=== PATIENT | male | born 1965 | race Asian ===

== ENCOUNTER 2018-10-29 22:30 | Inpatient (IN) | payer SELFPAY ==
[~2018-10-29] VITALS: Ht 154.9 cm; Wt 67.3 kg
--- NOTE | 2018-10-29 22:52 | NUR ---
ED Nurse Note: Received report. Pt AAOx4, ambulatory, from home, c/o abdominal pain 10/10 RLQ x 2days withn/v 6 times within the last few hrs. Will assess and carry out ER MD's orders.
[2018-10-29] MEDS ORDERED: Morphine Sulfate 4mg/ml Inj (IV USE ONLY) IVP ONE (23:00)
[2018-10-29] MEDS ORDERED: Ketorolac 30mg Inj IV ONE (23:00)
[2018-10-29 23:06] VITALS: BP 156/95
--- NOTE | 2018-10-29 23:14 | Emergency Room Report ---
History of Present Illness General Chief Complaint: Abdominal Pain Source: Patient Present Illness HPI Is a 53-year-old male with no past medical history. He presents with chief complaint abdominal pain. Onset for 1 day since this morning. Pain is to the right side. Has nausea vomiting. No diarrhea. No fever chills. Pain is sharp and crampy. 9 out of 10. Vomiting is nonbloody nonbilious. Allergies: Coded Allergies: No Known Allergies (Unverified , 10/29/18) Patient History Past Medical History: see triage record, old chart reviewed Past Surgical History: none Pertinent Family History: none Social History: Denies: smoking Immunizations: other Reviewed Nursing Documentation: PMH: Agreed; PSxH: Agreed Nursing Documentation-PMH Past Medical History: No Stated History Review of Systems Eye: Denies: eye pain, blurred vision ENT: Denies: ear pain, nose congestion, throat swelling Respiratory: Denies: cough, shortness of breath Cardiovascular: Denies: chest pain, palpitations Gastrointestinal: Reports: abdominal pain, nausea, vomiting; Denies: diarrhea Musculoskeletal: Denies: back pain, joint pain Skin: Denies: rash Neurological: Denies: headache, numbness Endocrine: Denies: increased thirst, increased urine Hematologic/Lymphatic: Denies: easy bruising All Other Systems: negative except mentioned in HPI Physical Exam Vital Signs Date Time Temp Pulse Resp B/P (MAP) Pulse Ox O2 Delivery O2 Flow Rate FiO2 10/29/18 22:36 97.7 85 22 162/105 (124) 99 Room Air vitals with high blood pressure Sp02 EP Interpretation: reviewed, normal General Appearance: well appearing, no apparent distress, alert Head: normocephalic, atraumatic Eyes: bilateral eye PERRL, bilateral eye EOMI ENT: hearing grossly normal, normal pharynx Neck: full range of motion, supple, no meningismus Respiratory: chest non-tender, lungs clear, normal breath sounds Cardiovascular #1: regular rate, rhythm, no murmur Gastrointestinal: normal bowel sounds, no mass, no organomegaly, no bruit, non- distended, tenderness - Rt lower quadrant tenderness Musculoskeletal: back normal, gait/station normal, normal range of motion Neurologic: alert, oriented x3 Psychiatric: mood/affect normal Skin: warm/dry Medical Decision Making Diagnostic Impression: Primary Impression: Appendicitis, acute Qualified Codes: K35.30 - Acute appendicitis with localized peritonitis, without perforation or gangrene ER Course This patient presents with right lower quadrant pain. He has leukocytosis and CT scan showed acute appendicitis. I discussed the case with Dr. Schafer for surgical consultation. Pt will be admitted to Dr. Low. Lab Results Impression Labs with leukocytosis Rhythm Strip Diag. Results EP Interpretation: yes Rate: 89 Rhythm: NSR, no PVC's CT/MRI/US Diagnostic Results CT/MRI/US Diagnostic Results : Imaging Test Ordered: CT abdomen and pelvis Impression Read by radiologist. Acute appendicitis. No abscess or perforation. Last Vital Signs Date Time Temp Pulse Resp B/P (MAP) Pulse Ox O2 Delivery O2 Flow Rate FiO2 10/29/18 22:36 97.7 85 22 162/105 (124) 99 Room Air Status: improved Disposition: ADMITTED INPATIENT Condition: Serious Luis Diaz MD Oct 29, 2018 23:14
[2018-10-29 23:26] LABS: HEMATOCRIT 41.7 % (42.0-52.0); HEMOGLOBIN 14.8 G/DL (14.2-18.0); MEAN CORPUSCULAR VOLUME 84 FL (80-99); PLATELET COUNT 226 K/UL (150-450); RED BLOOD COUNT 4.95 M/UL (4.70-6.10); RED CELL DISTRIBUTION WIDTH 10.7 % (11.6-14.8); WHITE BLOOD COUNT 18.3 K/UL (4.8-10.8)
[2018-10-29 23:28] LABS: ANION GAP 14 mmol/L (5-15); BLOOD UREA NITROGEN 20 mg/dL (7-18); CALCIUM 9.7 MG/DL (8.5-10.1); CARBON DIOXIDE 23 MMOL/L (21-32); CHLORIDE 99 MMOL/L (98-107); CREATININE 1.1 MG/DL (0.55-1.30); POTASSIUM 3.7 MMOL/L (3.5-5.1); SODIUM 135 MMOL/L (136-145)
[2018-10-29] MEDS ORDERED: Piperacillin/Tazobactam 3.375 GM in NS 110 ML IVPB ONE (23:30)
[2018-10-29 23:39] LABS: ALANINE AMINOTRANSFERASE 46 U/L (12-78); ALBUMIN 4.1 G/DL (3.4-5.0); ALBUMIN/GLOBULIN RATIO 0.9 (1.0-2.7); ALKALINE PHOSPHATASE 117 U/L (46-116); ASPARTATE AMINO TRANSFERASE 34 U/L (15-37); BILIRUBIN,TOTAL 1.2 MG/DL (0.2-1.0)
[2018-10-29 23:41] LABS: BILIRUBIN,DIRECT 0.2 MG/DL (0.0-0.3)
[2018-10-30] VITALS (13 sets, daily range): BP systolic 111–160; BP diastolic 70–90
--- NOTE | 2018-10-30 00:23 | Pre-Procedure Note/Attestation ---
Pre-Procedure Note/Attestation Complete Prior to Procedure Planned Procedure: not applicable Procedure Narrative: laparoscopic appendectomy possible open appendectomy Indications for Procedure Pre-Operative Diagnosis: acute appendicitis Attestation I attest that I discussed the nature of the procedure; its benefits; risks and complications; and alternatives (and the risks and benefits of such alternatives ), prior to the procedure, with the patient (or the patient's legal cash application representative). I attest that, if there was a reasonable possibility of needing a blood transfusion, the patient (or the patient's legal cash application representative) was given the [facility] standardized written summary, pursuant to the [place] Blood Safety Act ([place] Health and Safety Code # 1645, as amended). I attest that I re-evaluated the patient just prior to the surgery and that there has been no change in the patient's H&P, except as documented below: Iván Schafer MD Oct 30, 2018 00:23
--- NOTE | 2018-10-30 00:32 | NUR ---
ED Nurse Note: Pt ready for surgery and consent signed and in chart. Awaiting pickup for surgery.
[2018-10-30] MEDS ORDERED: fentaNYL 100 mcg/2 mL IV ONE (00:46)
[2018-10-30] MEDS ORDERED: Midazolam 2mg/2ml Inj ONE (00:47)
[2018-10-30] MEDS ORDERED: Propofol 200mg/20ml IV ONE (00:52)
[2018-10-30] MEDS ORDERED: Ketorolac 30mg Inj ONE (00:52)
[2018-10-30] MEDS ORDERED: Lidocaine 1% MPF 10mg/ml 5ml ONE (00:52)
[2018-10-30] MEDS ORDERED: Bupivacaine 0.25% Inj 30ml INJ ONE (00:57)
[2018-10-30] MEDS ORDERED: NeoSporin Gu Irrig 1ml Amp IRRIG ONE (00:57)
[2018-10-30] MEDS ORDERED: Bacitracin 50000 Units Vial ONE (00:57)
[2018-10-30] MEDS ORDERED: Zemuron 50mg/5ml Inj IV ONE (00:59)
[2018-10-30] MEDS ORDERED: Succinylcholine 20mg/ml 10ml vial ONE (00:59)
[2018-10-30] MEDS ORDERED: LR 1000ml 1,000 ML IVLG SCH (01:10)
--- NOTE | 2018-10-30 01:10 | Anethesia Preoperative Eval ---
Anesthesia Pre-op PMH/ROS General Date of Evaluation: Oct 30, 2018 Time of Evaluation: 01:06 Anesthesiologist: sena ASA Score: ASA 2 Mallampati Score Class I : Soft palate, uvula, fauces, pillars visible Class II: Soft palate, uvula, fauces visible Class III: Soft palate, base of uvula visible Class IV: Only hard plate visible Mallampati Classification: Class II Surgeon: Gilmar Diagnosis: Acute appendicitis Surgical Procedure: Appendectomy Anesthesia History: none Family History: no anesthesia problems Allergies: Coded Allergies: No Known Allergies (Unverified , 10/29/18) Medications: see eMAR Patient NPO?: Yes Past Medical History Cardiovascular: Reports: HTN - untreated; Denies: CAD, [place], valve dz, arrhythmia, other Pulmonary: Denies: asthma, COPD, ORI, other Gastrointestinal/Genitourinary: Reports: GERD, other; Denies: CRI, ESRD Neurologic/Psychiatric: Denies: dementia, CVA, depression/anxiety, TIA, other Endocrine: Denies: DM, hypothyroidism, steroids, other HEENT: Denies: cataract (L), cataract (R), glaucoma, SHOSHONE-PAI[place] (L), SHOSHONE-PAIUTE (R), other Hematology/Immune: Denies: anemia, DVT, bleeding disorder, other Musculoskeletal/Integumentary: Denies: OA, RA, DJD, DDD, edema, other PMH Narrative: as above admitted for acute abdominal pain PSxH Narrative: none Anesthesia Pre-op Phys. Exam Physician Exam Last Vital Signs Date Time Temp Pulse Resp B/P (MAP) Pulse Ox O2 Delivery O2 Flow Rate FiO2 10/29/18 23:06 97.7 86 22 156/95 99 Room Air Constitutional: NAD Neurologic: CN 2-12 intact Cardiovascular: RRR, no M/R/G Respiratory: CTA Gastrointestinal: other - tender on palpation Airway Exam Mallampati Score: Class II MO: full Neck: flexible ROM: full Teeth: missing Dentures: no upper, no lower Anesthesia Pre-op A/P Labs Hematology Test 10/29/18 22:52 White Blood Count 18.3 K/UL (4.8-10.8) H Red Blood Count 4.95 M/UL (4.70-6.10) Hemoglobin 14.8 G/DL (14.2-18.0) Hematocrit 41.7 % (42.0-52.0) L Mean Corpuscular Volume 84 FL (80-99) Mean Corpuscular Hemoglobin 29.9 PG (27.0-31.0) Mean Corpuscular Hemoglobin Concent 35.6 G/DL (32.0-36.0) Red Cell Distribution Width 10.7 % (11.6-14.8) L Platelet Count 226 K/UL (150-450) Mean Platelet Volume 7.6 FL (6.5-10.1) Neutrophils (%) (Auto) % (45.0-75.0) Lymphocytes (%) (Auto) % (20.0-45.0) Monocytes (%) (Auto) % (1.0-10.0) Eosinophils (%) (Auto) % (0.0-3.0) Basophils (%) (Auto) % (0.0-2.0) Chemistry Test 10/29/18 22:52 Sodium Level 135 MMOL/L (136-145) L Potassium Level 3.7 MMOL/L (3.5-5.1) Chloride Level 99 MMOL/L (98-107) Carbon Dioxide Level 23 MMOL/L (21-32) Anion Gap 14 mmol/L (5-15) Blood Urea Nitrogen 20 mg/dL (7-18) H Creatinine 1.1 MG/DL (0.55-1.30) Estimat Glomerular Filtration Rate > 60 mL/min (>60) Glucose Level 138 MG/DL (74-106) H Calcium Level 9.7 MG/DL (8.5-10.1) Total Bilirubin 1.2 MG/DL (0.2-1.0) H Direct Bilirubin 0.2 MG/DL (0.0-0.3) Aspartate Amino Transf (AST/SGOT) 34 U/L (15-37) Alanine Aminotransferase (ALT/SGPT) 46 U/L (12-78) Alkaline Phosphatase 117 U/L (46-116) H Total Protein 8.6 G/DL (6.4-8.2) H Albumin 4.1 G/DL (3.4-5.0) Globulin 4.5 g/dL Albumin/Globulin Ratio 0.9 (1.0-2.7) L Lipase 156 U/L (73-393) Risk Assessment & Plan Assessment: ASA 2E Plan: GA with ETT Status Change Before Surgery: No Pre-Antibiotics Drug: as scheduled Georgi Couch MD Oct 30, 2018 01:10
[2018-10-30] MEDS ORDERED: DiphenhydrAMINE 50mg/ml Inj IVP PRN (01:15)
--- NOTE | 2018-10-30 01:15 | NUR ---
TRANSFER TO FLOOR: Patient transferred to OR as ordered, per Dr. Couch. Report given to OR nurse. Belongings and medications given to at bedside. with pt at time of transfer.
--- NOTE | 2018-10-30 01:15 | Consultation ---
DATE OF CONSULTATION: 10/30/2018 PREOPERATIVE CONSULTATION CONSULTING PHYSICIAN: Iván Schafer M.D. REQUESTING PHYSICIAN: Luis Diaz M.D., Emergency Room. REASON FOR CONSULTATION: Abdominal pain. HISTORY OF PRESENT ILLNESS: This is a 53-year-old Iranian male, who presented to emergency room complaining of abdominal pain since the afternoon of 10/29/2018. He stated that the pain is located at right lower quadrant without radiation. This pain has been associated with nausea and vomiting. He denied any fever, cough, dysuria, or frequency. He denied any previous history of similar pain. PAST MEDICAL HISTORY: He denies allergies, asthma, diabetes, hypertension, and cardiac and renal diseases. He has a history of gout. SURGERIES: None. MEDICATIONS: He takes medicine for gout. SOCIAL HISTORY: The patient is a 53-year-old Iranian male, who is with two children. Currently unemployed. He claims that he quit smoking and drinking. REVIEW OF SYSTEMS: Noncontributory. PHYSICAL EXAMINATION: GENERAL: The patient appeared to be a well-developed and well-nourished 53-year-old Iranian male, lying on the gurney, complaining of abdominal pain. HEENT: Head is normocephalic and atraumatic. Eyes, pupils are equal, round, and reactive to light. Mouth is clear. NECK: There is no palpable thyromegaly or adenopathy. CHEST: Clear to auscultation and percussion. HEART: There is no gallop or murmur. S1 and S2 are within normal limits. ABDOMEN: Soft and flat with mild tenderness at the left lower quadrant, but the patient has received IV morphine. There is no palpable organomegaly and bowel sounds are present. EXTERNAL GENITALIA: Genital is normal. EXTREMITIES: Within normal limits. LABORATORY DATA: [place] [address]. The differential is not available yet. Chemistry is normal. The CAT scan of the abdomen has been interpreted as acute appendicitis. ASSESSMENT: Acute appendicitis. PLAN: After rehydration, the patient will undergo a laparoscopy with appendectomy, possible open appendectomy. The risks and benefits have been explained. He understood and granted consent. Iván Schafer M.D. DR: LILY JOB#: [id number] CC: FABIÁN
[2018-10-30] MEDS ORDERED: Neostigmine 1mg/ml 10ml Inj ONE (01:53)
[2018-10-30] MEDS ORDERED: Glycopyrrolate 0.2mg/ml 1ml Vial ONE (01:53)
[2018-10-30] MEDS ORDERED: NS Irrig 1000ml IRRIG ONE (02:09)
[2018-10-30] MEDS: D5 1/2NS w/KCl 20mEq 1,000 ML IV SCH ×3 (03:01→18:59)
--- NOTE | 2018-10-30 03:01 | Brief Operative Note ---
Immediate Post Operative Note Operative Note Pre-op Diagnosis: acute appendicitis Post-op Diagnosis: the same Post-op Diagnosis: same as pre-op Findings: consistent w/pre-op dx studies Surgeon: MD [employer] Consultant: none Anesthesiologist: Dr. Couch Anesthesia: general Specimen: yes Complications: none Condition: stable Fluids: per anesthesiologist Estimated Blood Loss: volume - 200 ml Drains: none Implant(s) used?: No Iván Schafer MD Oct 30, 2018 03:00
[2018-10-30] MEDS: Meperidine 50mg/ml Inj(FOR RIGORS ONLY) IV PRN ×2 (03:12→03:34)
[2018-10-30] MEDS ORDERED: Metoclopramide 10mg/2ml Inj IVP PRN (03:15)
[2018-10-30] MEDS ORDERED: Hydromorphone 0.5mg/0.5ml inj IVP PRN (03:15)
[2018-10-30] MEDS ORDERED: Acetaminophen 650 MG SUPP RECTAL PRN (03:15)
[2018-10-30] MEDS ORDERED: HYDROmorphone 1mg/ml Carpuject IVP PRN (03:15)
--- NOTE | 2018-10-30 03:18 | Immediate Post-Op Evaluation ---
Immediate Post-Op Evalulation Immediate Post-Op Evalulation Procedure: Diagnostic laparoscopy open appendectomy Date of Evaluation: Oct 30, 2018 Time of Evaluation: 03:17 IV Fluids: 1500 Blood Products: none Estimated Blood Loss: 300 Urinary Output: none Blood Pressure Systolic: 117 Blood Pressure Diastolic: 78 Pulse Rate: 104 Respiratory Rate: 22 O2 Sat by Pulse Oximetry: 99 Temperature (Fahrenheit): 97.3 Pain Score (1-10): 1 Nausea: No Vomiting: No Complications none Patient Status: reacts, patent, extubated, none Hydration Status: adequate Georgi Couch MD Oct 30, 2018 03:18
--- NOTE | 2018-10-30 04:56 | NUR ---
NURSE NOTES: Patient admitted on 312-2. Dressings are dry and intact. IV site running IV fluids. No pain at this time. Voided x1. Belongings list signed Needs attended. Call light within reach. In stable condition.
[2018-10-30] MEDS: Piperacillin/Tazobactam 4.5 GM in NS 110 ML IVPB SCH ×3 (05:11→21:33)
--- NOTE | 2018-10-30 05:30 | Operative Note - Dictated ---
DATE OF OPERATION: 10/30/2018 PREOPERATIVE DIAGNOSIS: Acute appendicitis. POSTOPERATIVE DIAGNOSIS: Acute appendicitis. OPERATIONS: 1. Attempted laparoscopy appendectomy. 2. Open appendectomy. COMPLICATIONS: Bleeding, controlled. SURGEON: Iávn Schafer M.D. REGISTERED HEALTH NURSE: None. ANESTHESIA: General with endotracheal tube. ANESTHESIOLOGIST: Georgi Couch M.D. INDICATION: This is a 53-year-old Polish male who presented to emergency room complaining of one-day history of abdominal pain. Pain was located at the right lower quadrant and associated with nausea and vomiting. Physical examination showed tenderness at right lower quadrant. CBC showed WBC of 18,300 with a left shift. The CT scan of the abdomen was interpreted as acute appendicitis. DESCRIPTION OF PROCEDURE: The patient was placed supine on the operating table and after general anesthesia with endotracheal tube, the abdomen was properly prepped and draped. Initially, a small incision was given above the umbilicus through which a Veress needle was introduced into the intraperitoneal cavity. This cavity was insufflated up to 15 mmHg and then the Veress needle was removed and a 5 mm trocar was placed in the intraperitoneal cavity through the incision above the umbilicus. Laparoscope and camera were introduced into the intraperitoneal cavity and under direct vision, a 5 mm trocar was placed at the suprapubic area and a 12 mm trocar was placed at the left lower quadrant of the abdomen. Initially, a rapid exploration was performed, which showed the diaphragms to be normal. The part of the stomach, which could be seen, was normal. The liver was normal. The bowels were covered with fatty omentum. In fact, the patient had a large amount of fat in the abdomen. He had some fluid on the right paracolic gutter and pelvis. Exploration of the right lower quadrant cavity was performed and the cecum was identified. The cecum had adhesions in the posterior abdominal wall and we could not lift it up. Exploration was performed. I noticed a hard inflammatory object below the cecum with dense adhesions to the posterior abdominal wall. I was unable to see the appendix. I attempted to release this inflammatory mass, but first of all, I was not sure of origin. Second, it was beside, it did not release and started bleeding. As the anatomy was not clear, the decision was made for open appendectomy. The trocars were removed and then a transverse incision was given in the right lower quadrant of the abdomen, later this incision was extended laterally and cephalad. This incision was carried sharply through subcutaneous tissue. The aponeurosis of the external oblique was incised along the fibers and the muscles were split. The intraperitoneal cavity was entered. The distal examination was performed and finally the appendix was identified and was delivered in the wound. The appendix was inflamed and distended. It seemed at the tip, it was gangrenous. While we were manipulating the appendix to get better exposure, the appendix was at the midportion. Finally, the remnant of the appendix was exposed and was grasped with a grasper and then the mesoappendix and appendix was ligated and transected with the help of the ИРИНА stapler. There was some more remnant, which required removal with the help of the hemoclip. At this point, it was obvious that we have removed the whole appendix and the inflammatory tissues in that area. At this time, the patient had bleeding deep into the wound, so the incision was extended and the bleeding was controlled with a hemoclip and finally oversewing it with #1 Vicryl. The bleeding was completely controlled and the right lower quadrant cavity was irrigated with antibiotic solution and then the incision was approximated with running suture of #1 Vicryl for posterior fascia and peritoneum. The muscles were approximated with a few interrupted sutures of #1 Vicryl. The aponeurosis of the external oblique was approximated with running suture of #0 Vicryl. The skin incisions were infiltrated with total of 10 mL of Marcaine 0.25% and the skin incisions were approximated with multiple skin ervin. The patient tolerated the procedure very well and was transferred to recovery room in stable condition and extubated. The sponge and needle count correct. Estimated blood loss 200 mL. Condition of the patient at the end of procedure is stable. Iván Schafer M.D. DR: ANASTACIO JOB#: [id number] CC:
--- NOTE | 2018-10-30 07:30 | NUR ---
NURSE NOTES: Patient is in bed awake and able to verbalize needs. Denies pain or SOB at this time. Encouraged patient to use call light for assistance and use I/S, patient verbalized understanding. Patient is in bed with call light within reach. Will continue to monitor.
--- NOTE | 2018-10-30 09:53 | Diagnostic Imaging Report ---
Indication: Abdominal pain Technique: Continuous helical transaxial imaging of the abdomen and pelvis was obtained from the lung bases to the pubic symphysis. No intravenous contrast was administered. Coronal 2-D reformats were also obtained. Automatic Exposure Control was utilized. Total Dose length Product (DLP): 732.[address] Dose Index Volume (CTDIvol): 13.58 mGy Comparison: none Findings: The lung bases are clear. The appendix is dilated measuring up to about 14 mm without periappendiceal inflammatory soft tissue stranding. There is no abscess. Bowel gas pattern is nonobstructive. Hiatal hernia noted. There is no free fluid. There is no hydronephrosis. There is a small nonobstructive stone demonstrated within the upper pole the left kidney. No adrenal mass or splenomegaly demonstrated. Gallbladder is unremarkable. Small bilateral inguinal hernias containing fat noted. IMPRESSION: Acute appendicitis. Inflammation noted. No abscess. Other incidental findings as described above The CT scanner at [facility] is accredited by the [employer] and the scans are performed using dose optimization techniques as appropriate to a performed exam including Automatic Exposure control.
--- NOTE | 2018-10-30 13:03 | Consultation ---
History of Present Illness General Date patient seen: Oct 30, 2018 Chief Complaint: Abdominal Pain Present Illness Allergies: Coded Allergies: No Known Allergies (Unverified , 10/29/18) Patient History Healthcare decision maker Resuscitation status Full Code Advanced Directive on File Physical Exam Last 24 Hour Vital Signs Date Time Temp Pulse Resp B/P (MAP) Pulse Ox O2 Delivery O2 Flow Rate FiO2 10/30/18 09:00 Room Air 10/30/18 08:00 97.7 105 18 118/79 (92) 99 10/30/18 04:10 98.4 10/30/18 04:00 97.9 102 18 125/80 (95) 99 10/30/18 03:57 98.4 100 17 111/75 99 Nasal Cannula 3 10/30/18 03:54 Nasal Cannula 2.0 10/30/18 03:50 98 15 117/80 99 Nasal Cannula 3 10/30/18 03:40 107 17 122/81 100 Nasal Cannula 3 10/30/18 03:30 96 16 128/86 100 Nasal Cannula 3 10/30/18 03:20 101 20 124/85 100 Simple Mask 6 10/30/18 03:18 104 22 99 10/30/18 03:15 108 18 118/78 100 Simple Mask 6 10/30/18 03:13 98.8 103 14 117/82 100 Simple Mask 6 10/30/18 01:20 105 22 160/77 96 Room Air 10/30/18 00:35 97.7 105 22 160/77 96 Room Air 10/29/18 23:06 97.7 86 22 156/95 99 Room Air 10/29/18 23:00 85 21 Room Air 10/29/18 22:36 97.7 85 22 162/105 (124) 99 Room Air Intake and Output 10/29/18 10/30/18 19:00 07:00 Intake Total 2150 ml Output Total 300 ml Balance 1850 ml Intake IV Total 2150 ml Output Estimated Blood Loss 300 ml # Voids 1 Laboratory Tests Test 10/29/18 22:52 White Blood Count 18.3 K/UL (4.8-10.8) H Red Blood Count 4.95 M/UL (4.70-6.10) Hemoglobin 14.8 G/DL (14.2-18.0) Hematocrit 41.7 % (42.0-52.0) L Mean Corpuscular Volume 84 FL (80-99) Mean Corpuscular Hemoglobin 29.9 PG (27.0-31.0) Mean Corpuscular Hemoglobin Concent 35.6 G/DL (32.0-36.0) Red Cell Distribution Width 10.7 % (11.6-14.8) L Platelet Count 226 K/UL (150-450) Mean Platelet Volume 7.6 FL (6.5-10.1) Neutrophils (%) (Auto) % (45.0-75.0) Lymphocytes (%) (Auto) % (20.0-45.0) Monocytes (%) (Auto) % (1.0-10.0) Eosinophils (%) (Auto) % (0.0-3.0) Basophils (%) (Auto) % (0.0-2.0) Sodium Level 135 MMOL/L (136-145) L Potassium Level 3.7 MMOL/L (3.5-5.1) Chloride Level 99 MMOL/L (98-107) Carbon Dioxide Level 23 MMOL/L (21-32) Anion Gap 14 mmol/L (5-15) Blood Urea Nitrogen 20 mg/dL (7-18) H Creatinine 1.1 MG/DL (0.55-1.30) Estimat Glomerular Filtration Rate > 60 mL/min (>60) Glucose Level 138 MG/DL (74-106) H Calcium Level 9.7 MG/DL (8.5-10.1) Total Bilirubin 1.2 MG/DL (0.2-1.0) H Direct Bilirubin 0.2 MG/DL (0.0-0.3) Aspartate Amino Transf (AST/SGOT) 34 U/L (15-37) Alanine Aminotransferase (ALT/SGPT) 46 U/L (12-78) Alkaline Phosphatase 117 U/L (46-116) H Total Protein 8.6 G/DL (6.4-8.2) H Albumin 4.1 G/DL (3.4-5.0) Globulin 4.5 g/dL Albumin/Globulin Ratio 0.9 (1.0-2.7) L Lipase 156 U/L (73-393) Height (Feet): 5 Height (Inches): 1.00 Weight (Pounds): 148 Medications Current Medications Medications (Trade) Dose Ordered Sig/Clint Route PRN Reason Start Time Stop Time Status Last Admin Dose Admin Acetaminophen (Tylenol) 650 mg Q4H PRN RECTAL FEVER 10/30/18 03:15 11/29/18 03:14 Dextrose/ Electrolytes 1,000 ml @ 100 mls/hr Q10H IV 10/30/18 03:01 11/29/18 03:00 10/30/18 03:01 Diphenhydramine HCl (Benadryl) 25 mg Q15M PRN IVP Itching 10/30/18 01:15 10/30/18 15:00 Famotidine (Pepcid I.v.) 20 mg Q12HR IVP 10/30/18 09:00 11/29/18 08:59 10/30/18 09:03 Hydromorphone HCl (Dilaudid) 0.5 mg Q3H PRN IVP Pain Score 1-3 10/30/18 03:15 11/06/18 03:14 Hydromorphone HCl (Dilaudid) 1 mg Q3H PRN IVP pain score 4-6 10/30/18 03:15 11/06/18 03:14 10/30/18 05:30 Hydromorphone HCl (Dilaudid) 2 mg Q3H PRN IVP pain score 7-10 10/30/18 03:15 11/06/18 03:14 10/30/18 11:29 Metoclopramide HCl (Reglan) 10 mg Q6H PRN IVP Nausea & Vomiting 10/30/18 03:15 11/29/18 03:14 10/30/18 03:42 Ondansetron HCl (Zofran) 4 mg Q1H PRN IVP Nausea & Vomiting 10/30/18 01:15 10/30/18 15:00 Ondansetron HCl (Zofran) 4 mg Q6H PRN IVP Nausea & Vomiting 10/30/18 03:15 11/29/18 03:14 Piperacillin Sod/ Tazobactam Sod 4.5 gm/Sodium Chloride 110 ml @ 27.5 mls/hr EVERY 8 HOURS IVPB 10/30/18 06:00 11/04/18 05:59 10/30/18 05:11 Assessment/Plan Assessment/Plan: HEMATOLOGY/ONCOLOGY CONSULTATION DATE OF CONSULTATION: 10/30/2018 REFERRING MD: Demetrice Fitzpatrick REASON FOR CONSULT: Leukocytosis HISTORY OF PRESENT ILLNESS; 53-year-old [place] male, who presented to emergency room complaining of abdominal pain since the afternoon of 10/29/2018. He stated that the pain is located at right lower quadrant without radiation. This pain has been associated with nausea and vomiting. He denied any fever, cough, dysuria, or frequency. He denied any previous history of similar pain. Review of CBC showed an elevated white count of 18.3. Hematology services have been consulted for the evaluation of leukocytosis. PAST MEDICAL HISTORY: He denies allergies, asthma, diabetes, hypertension, and cardiac and renal diseases. He has a history of gout. PAST SURGICAL HISTORY: None. MEDICATIONS: hydromorphone, famotidine, ondansetron, piperacillin/tazobactam, diphenhydramine SOCIAL HISTORY: The patient is a 53-year-old [place] male, who is with two children. Currently unemployed. He claims that he quit smoking and drinking. FAMILY HISTORY: Noncontributory. REVIEW OF SYSTEMS: Positive for abd pain noted in HPI PHYSICAL EXAMINATION: GENERAL: The patient appeared to be a well-developed and well-nourished 53-year -old [place] male, lying on the gurney, complaining of abdominal pain. HEENT: Head is normocephalic and atraumatic. Eyes, pupils are equal, round, and reactive to light. Mouth is clear. NECK: There is no palpable thyromegaly or adenopathy. CHEST: Clear to auscultation and percussion. HEART: There is no gallop or murmur. S1 and S2 are within normal limits. ABDOMEN: Soft and flat with mild tenderness at the left lower quadrant, is now with minor surgical scars+++. EXTERNAL GENITALIA: Genital is normal. EXTREMITIES: Within normal limits. Laboratory Tests Test 10/29/18 22:52 White Blood Count 18.3 K/UL (4.8-10.8) H Red Blood Count 4.95 M/UL (4.70-6.10) Hemoglobin 14.8 G/DL (14.2-18.0) Hematocrit 41.7 % (42.0-52.0) L Mean Corpuscular Volume 84 FL (80-99) Mean Corpuscular Hemoglobin 29.9 PG (27.0-31.0) Mean Corpuscular Hemoglobin Concent 35.6 G/DL (32.0-36.0) Red Cell Distribution Width 10.7 % (11.6-14.8) L Platelet Count 226 K/UL (150-450) Mean Platelet Volume 7.6 FL (6.5-10.1) Neutrophils (%) (Auto) % (45.0-75.0) Lymphocytes (%) (Auto) % (20.0-45.0) Monocytes (%) (Auto) % (1.0-10.0) Eosinophils (%) (Auto) % (0.0-3.0) Basophils (%) (Auto) % (0.0-2.0) Sodium Level 135 MMOL/L (136-145) L Potassium Level 3.7 MMOL/L (3.5-5.1) Chloride Level 99 MMOL/L (98-107) Carbon Dioxide Level 23 MMOL/L (21-32) Anion Gap 14 mmol/L (5-15) Blood Urea Nitrogen 20 mg/dL (7-18) H Creatinine 1.1 MG/DL (0.55-1.30) Estimat Glomerular Filtration Rate > 60 mL/min (>60) Glucose Level 138 MG/DL (74-106) H Calcium Level 9.7 MG/DL (8.5-10.1) Total Bilirubin 1.2 MG/DL (0.2-1.0) H Direct Bilirubin 0.2 MG/DL (0.0-0.3) Aspartate Amino Transf (AST/SGOT) 34 U/L (15-37) Alanine Aminotransferase (ALT/SGPT) 46 U/L (12-78) Alkaline Phosphatase 117 U/L (46-116) H Total Protein 8.6 G/DL (6.4-8.2) H Albumin 4.1 G/DL (3.4-5.0) Globulin 4.5 g/dL Albumin/Globulin Ratio 0.9 (1.0-2.7) L Lipase 156 U/L (73-393) Last 24 Hour Vital Signs Date Time Temp Pulse Resp B/P (MAP) Pulse Ox O2 Delivery O2 Flow Rate FiO2 10/30/18 09:00 Room Air 10/30/18 08:00 97.7 105 18 118/79 (92) 99 10/30/18 04:10 98.4 10/30/18 04:00 97.9 102 18 125/80 (95) 99 10/30/18 03:57 98.4 100 17 111/75 99 Nasal Cannula 3 10/30/18 03:54 Nasal Cannula 2.0 10/30/18 03:50 98 15 117/80 99 Nasal Cannula 3 10/30/18 03:40 107 17 122/81 100 Nasal Cannula 3 10/30/18 03:30 96 16 128/86 100 Nasal Cannula 3 10/30/18 03:20 101 20 124/85 100 Simple Mask 6 10/30/18 03:18 104 22 99 10/30/18 03:15 108 18 118/78 100 Simple Mask 6 10/30/18 03:13 98.8 103 14 117/82 100 Simple Mask 6 10/30/18 01:20 105 22 160/77 96 Room Air 10/30/18 00:35 97.7 105 22 160/77 96 Room Air 10/29/18 23:06 97.7 86 22 156/95 99 Room Air 10/29/18 23:00 85 21 Room Air 10/29/18 22:36 97.7 85 22 162/105 (124) 99 Room Air IMAGIN/04: CT abd --> Acute appendicitis. LABORATORY DATA: 10/30: wbc 18.2 hgb 14.8 plt 226 ASSESSMENT AND PLAN # Leukocytosis/elevated white blood cell count, unspecified likely related to acute appendicitis --> have reviewed peripheral smear and bandemia/neutrophilia noted --> continue antibiotics if they have been started by ID team --> monitor for resolution --> WBC trend: 18.3--> # Hyperproteinemia -- likely reactive given no other findings --> recheck in future, make sure no malignancy # Acute appendicitis. S/P diagnostic laparoscopy open appendectomy --> appreciate surgical recs --> re-eval if recurreing abd pain # HYperbilirubinemia - due to abdominal process --> should improve after surgery # Hyperglycemia - from IVF --> does not appear to have DM The time note is entered does not necessarily reflect the time patient was examined. Greatly appreciate the consultation. Paul Montiel MD Oct 30, 2018 13:03
--- NOTE | 2018-10-30 14:04 | NUR ---
CASE MANAGEMENT:REVIEW 10/29/18 53 YR OLD MALE PRESENTED TO ER CC: ABDOMINAL PAIN AND VOMITING SI: APPENDICITIS 97.7 85 22 162/105 99% ON RA WBC+18.3 IS: IV ZOFRAN IV TORADOL IV MORPHINE 1L NS BOLUS IV ZOSYN CT ABD/PELVIS : TO SURGERY FROM ER @ 0300 ON 10/30/18
--- NOTE | 2018-10-30 17:19 | General Surgery Progress Note ---
General Surgery-Progress Note Objective Last 24 Hour Vital Signs Date Time Temp Pulse Resp B/P (MAP) Pulse Ox O2 Delivery O2 Flow Rate FiO2 10/30/18 16:00 97.8 87 17 130/86 (101) 95 10/30/18 12:00 98.1 92 17 124/79 (94) 93 10/30/18 09:00 Room Air 10/30/18 08:00 97.7 105 18 118/79 (92) 99 10/30/18 04:10 98.4 10/30/18 04:00 97.9 102 18 125/80 (95) 99 10/30/18 03:57 98.4 100 17 111/75 99 Nasal Cannula 3 10/30/18 03:54 Nasal Cannula 2.0 10/30/18 03:50 98 15 117/80 99 Nasal Cannula 3 10/30/18 03:40 107 17 122/81 100 Nasal Cannula 3 10/30/18 03:30 96 16 128/86 100 Nasal Cannula 3 10/30/18 03:20 101 20 124/85 100 Simple Mask 6 10/30/18 03:18 104 22 99 10/30/18 03:15 108 18 118/78 100 Simple Mask 6 10/30/18 03:13 98.8 103 14 117/82 100 Simple Mask 6 10/30/18 01:20 105 22 160/77 96 Room Air 10/30/18 00:35 97.7 105 22 160/77 96 Room Air 10/29/18 23:06 97.7 86 22 156/95 99 Room Air 10/29/18 23:00 85 21 Room Air 10/29/18 22:36 97.7 85 22 162/105 (124) 99 Room Air I&O Intake and Output 10/29/18 10/30/18 18:59 06:59 Intake Total 2150 ml Output Total 300 ml Balance 1850 ml Intake IV Total 2150 ml Output Estimated Blood Loss 300 ml # Voids 1 Dressing: bloody Drains: none Respiratory: clear Abdomen: soft, flat, tenderness, decreased bowel sounds Extremities: no tenderness Laboratory Tests Test 10/29/18 22:52 White Blood Count 18.3 K/UL (4.8-10.8) H Red Blood Count 4.95 M/UL (4.70-6.10) Hemoglobin 14.8 G/DL (14.2-18.0) Hematocrit 41.7 % (42.0-52.0) L Mean Corpuscular Volume 84 FL (80-99) Mean Corpuscular Hemoglobin 29.9 PG (27.0-31.0) Mean Corpuscular Hemoglobin Concent 35.6 G/DL (32.0-36.0) Red Cell Distribution Width 10.7 % (11.6-14.8) L Platelet Count 226 K/UL (150-450) Mean Platelet Volume 7.6 FL (6.5-10.1) Neutrophils (%) (Auto) % (45.0-75.0) Lymphocytes (%) (Auto) % (20.0-45.0) Monocytes (%) (Auto) % (1.0-10.0) Eosinophils (%) (Auto) % (0.0-3.0) Basophils (%) (Auto) % (0.0-2.0) Sodium Level 135 MMOL/L (136-145) L Potassium Level 3.7 MMOL/L (3.5-5.1) Chloride Level 99 MMOL/L (98-107) Carbon Dioxide Level 23 MMOL/L (21-32) Anion Gap 14 mmol/L (5-15) Blood Urea Nitrogen 20 mg/dL (7-18) H Creatinine 1.1 MG/DL (0.55-1.30) Estimat Glomerular Filtration Rate > 60 mL/min (>60) Glucose Level 138 MG/DL (74-106) H Calcium Level 9.7 MG/DL (8.5-10.1) Total Bilirubin 1.2 MG/DL (0.2-1.0) H Direct Bilirubin 0.2 MG/DL (0.0-0.3) Aspartate Amino Transf (AST/SGOT) 34 U/L (15-37) Alanine Aminotransferase (ALT/SGPT) 46 U/L (12-78) Alkaline Phosphatase 117 U/L (46-116) H Total Protein 8.6 G/DL (6.4-8.2) H Albumin 4.1 G/DL (3.4-5.0) Globulin 4.5 g/dL Albumin/Globulin Ratio 0.9 (1.0-2.7) L Lipase 156 U/L (73-393) Assessment Post-op Diagnosis the same Additional Comments S/P open appendectomy Plan Additional Comments continue as before Iván Schafer MD Oct 30, 2018 17:19
[2018-10-30 19:06] LABS: BASOPHILS % (AUTO) 0.7 % (0.0-2.0); EOSINOPHILS % (AUTO) 0.1 % (0.0-3.0); HEMATOCRIT 32.7 % (42.0-52.0); HEMOGLOBIN 11.5 G/DL (14.2-18.0); LYMPHOCYTES % (AUTO) 9.9 % (20.0-45.0); MEAN CORPUSCULAR VOLUME 84 FL (80-99); MONOCYTES % (AUTO) 6.1 % (1.0-10.0); NEUTROPHILS % (AUTO) 83.2 % (45.0-75.0); PLATELET COUNT 186 K/UL (150-450); RED CELL DISTRIBUTION WIDTH 10.8 % (11.6-14.8)
[2018-10-30 19:20] LABS: ANION GAP 8 mmol/L (5-15); BLOOD UREA NITROGEN 12 mg/dL (7-18); CALCIUM 8.3 MG/DL (8.5-10.1); CARBON DIOXIDE 24 MMOL/L (21-32); CHLORIDE 104 MMOL/L (98-107); CREATININE 0.9 MG/DL (0.55-1.30); POTASSIUM 3.7 MMOL/L (3.5-5.1); SODIUM 136 MMOL/L (136-145)
--- NOTE | 2018-10-30 19:45 | Consultation ---
DATE OF CONSULTATION: 10/30/2018 INFECTIOUS DISEASE CONSULT: CONSULTING PHYSICIAN: Luan Morales M.D. PRIMARY ATTENDING: Demetrice Low M.D. REASON FOR CONSULT: Acute appendicitis. HISTORY OF PRESENT ILLNESS: This is a 53-year-old [place] male admitted yesterday from home complaining of right abdominal pain, nausea, vomiting. Had leukocytosis and CT scan of the abdomen and pelvis showed acute appendicitis. The patient went to operating room today. An attempt for laparoscopic appendectomy was unsuccessful and the patient had open appendectomy. PAST MEDICAL HISTORY: The patient states he has severe gout. ALLERGIES: No known drug allergies. MEDICATIONS: Getting Pepcid, Zosyn, hydromorphone, metoclopramide, Tylenol, Zofran. SOCIAL HISTORY: . Originally from [place]. Ex-smoker. Stopped smoking 3 years ago. Denies alcohol or drug abuse. REVIEW OF SYSTEMS: Denies fever and chills. No coughing. No shortness of breath. Surgical site pain. Has some difficulty in urination after the surgery. PHYSICAL EXAMINATION: VITAL SIGNS: Temperature 97.7, pulse 105, blood pressure 118/79. GENERAL APPEARANCE: No acute distress. HEAD AND NECK: [place] conjunctivae. HEART: Normal rate. LUNGS: Clear. ABDOMEN: Soft, nontender. Surgical dressing in right side of the abdomen. EXTREMITIES: He has no edema. NEUROLOGIC: Awake, alert, oriented x3. LABORATORY AND DIAGNOSTIC DATA: WBC is 18.3, hemoglobin 14.8, hematocrit 41.7, platelets 226. Sodium 135, potassium 3.7, chloride 99, bicarbonate 23, BUN 20, creatinine 1.1, glucose is 138. Bilirubin is 1.2. CT scan of the abdomen and pelvis showed acute appendicitis. No abscess. Small stone in the left kidney. Small bilateral inguinal hernia. IMPRESSION: 1. Acute appendicitis, status post open appendectomy. 2. Also the patient 3. History of gout. RECOMMENDATION: Continue Zosyn preoperative. I discussed the case with the surgeon. At the end of my exam, I thank Dr. Low for involving me in the care of this patient. Luan Morales M.D. DR: CONI JOB#: [id number] CC: FABIÁN
--- NOTE | 2018-10-30 20:00 | NUR ---
NURSE NOTES: Patient received in bed, awake and alert. IV is infusing as ordered on LAC, no signs of infiltration. Surgical sites stained but no active bleeding noted. Call light and urinal within reach. Will continue to monitor.
--- NOTE | 2018-10-30 20:23 | NUR ---
HAND-OFF: Report given to Jackie FENTON. Patient is stable.
[2018-10-31] VITALS: BP 128/74
[2018-10-31] MEDS: D5 1/2NS w/KCl 20mEq 1,000 ML IV SCH ×2 (03:14→13:45)
--- NOTE | 2018-10-31 03:30 | History and Physical Report ---
DATE OF ADMISSION: 10/30/2018 HISTORY OF PRESENT ILLNESS: The patient came in with history of abdominal pain. He was diagnosed with acute appendicitis and leukocytosis. Dr. Schafer took the patient emergently to the operating room. The patient denies any diarrhea. Denies fever. PAST MEDICAL HISTORY: Significant for gout only. PAST SURGICAL HISTORY: None. MEDICATIONS: None. ALLERGIES: No known allergies. FAMILY HISTORY: Noncontributory. SOCIAL HISTORY: He has a history of smoking. No history of drug or alcohol abuse. REVIEW OF SYSTEMS: HEENT: Denies headaches. RESPIRATORY: Denies shortness of breath. Denies cough. CARDIOVASCULAR: Denies chest pain. Denies orthopnea. GASTROINTESTINAL: Reports abdominal pain, nausea. Denies rectal bleeding. EXTREMITIES: Denies pain in lower extremities. CENTRAL NERVOUS SYSTEM: No change in vision or speech pattern. PHYSICAL EXAMINATION: VITAL SIGNS: Temperature 97.9, pulse is 102, blood pressure 125/80. HEENT: PERRLA. NECK: Supple. No lymphadenopathy. CHEST: Clear to auscultation. CARDIOVASCULAR: Regular rate and rhythm. No murmurs or extra sounds. GASTROINTESTINAL: Tenderness in the right lower quadrants status post surgery. . Bowel sounds present. EXTREMITIES: No edema. Moves all four extremities. Reflexes equal on both sides. Sensory intact to light touch LABORATORY DATA: WBC of 18.3, hemoglobin 14.8, and platelets of 226. Sodium 135, potassium 3.7, BUN of 20, creatinine 1.1, glucose 138. ASSESSMENT/PLAN: Appendicitis, status post appendectomy. I have also consulted Dr. Luan Morales, Dr. Good, Dr. Morfin for antibiotic treatment if needed as well as for borderline hypokalemia. Demetrice Low M.D. DR: Sharif JOB#: [id number] CC:
[2018-10-31 04:00] VITALS: BP 132/89
[2018-10-31] MEDS: Piperacillin/Tazobactam 4.5 GM in NS 110 ML IVPB SCH ×3 (05:52→22:22)
[2018-10-31 06:40] LABS: BASOPHILS % (AUTO) 1.1 % (0.0-2.0); EOSINOPHILS % (AUTO) 0.7 % (0.0-3.0); HEMATOCRIT 32.8 % (42.0-52.0); HEMOGLOBIN 11.2 G/DL (14.2-18.0); LYMPHOCYTES % (AUTO) 12.8 % (20.0-45.0); MEAN CORPUSCULAR VOLUME 88 FL (80-99); MONOCYTES % (AUTO) 6.3 % (1.0-10.0); NEUTROPHILS % (AUTO) 79.2 % (45.0-75.0); PLATELET COUNT 195 K/UL (150-450); RED BLOOD COUNT 3.72 M/UL (4.70-6.10); RED CELL DISTRIBUTION WIDTH 11.2 % (11.6-14.8); WHITE BLOOD COUNT 8.5 K/UL (4.8-10.8)
[2018-10-31 06:44] LABS: ANION GAP 5 mmol/L (5-15); BLOOD UREA NITROGEN 9 mg/dL (7-18); CALCIUM 8.5 MG/DL (8.5-10.1); CARBON DIOXIDE 28 MMOL/L (21-32); CHLORIDE 105 MMOL/L (98-107); POTASSIUM 4.2 MMOL/L (3.5-5.1); SODIUM 138 MMOL/L (136-145)
--- NOTE | 2018-10-31 07:35 | NUR ---
HAND-OFF: Report given to Rupesh FENTON.
--- NOTE | 2018-10-31 07:40 | NUR ---
NURSE NOTES: Patient lying in bed awake. No complain of pain or distress at this time. Skin intact and dry. Surgical stained and will continue to monitor. IV dressing intact and dry. Bed lowest position. Call light within reach. Will continue to monitor.
[2018-10-31 08:00] VITALS: BP 125/81
--- NOTE | 2018-10-31 09:31 | Hematology/Onc Progress Note ---
Assessment/Plan Assessment/Plan ASSESSMENT AND PLAN # Anemia of chronic disease (or of iron deficiency) due to underlying chronic medical issues, multifactorial --> Currently stable with Hgb >11 --> No evidence of hemolysis is noted, peripheral smear has been reviewed. --> Hgb goal >7. Transfuse prn. --> Epogen or iron at this time is not particularly indicated --> Medications have been reviewed --> low threshold for gi evaluation in case has occult + --> bone marrow biopsy is not indicated given the other more likely causes --> hgb trend: 14.8-->11.2 # Leukocytosis/elevated white blood cell count, unspecified likely related to acute appendicitis --> Currently resolved --> have reviewed peripheral smear and bandemia/neutrophilia noted --> continue antibiotics if they have been started by ID team --> monitor for resolution --> WBC trend: 18.3-->11-->8.5 # Hyperproteinemia -- likely reactive given no other findings --> recheck in future, make sure no malignancy # Acute appendicitis. S/P diagnostic laparoscopy open appendectomy --> appreciate surgical recs --> re-eval if recurreing abd pain # HYperbilirubinemia - due to abdominal process --> should improve after surgery # Hyperglycemia - from IVF --> does not appear to have DM The time note is entered does not necessarily reflect the time patient was examined. Greatly appreciate the consultation. Subjective Allergies: Coded Allergies: No Known Allergies (Unverified , 10/29/18) All Systems: reviewed and negative except above Subjective 10/31: Patient lying in bed awake. No complaints of pain or distress at this time. Objective Objective Current Medications Medications (Trade) Dose Ordered Sig/Clint Route PRN Reason Start Time Stop Time Status Last Admin Dose Admin Acetaminophen (Tylenol) 650 mg Q4H PRN RECTAL FEVER 10/30/18 03:15 11/29/18 03:14 Dextrose/ Electrolytes 1,000 ml @ 120 mls/hr Q8H20M IV 10/30/18 20:00 11/29/18 19:59 10/31/18 03:14 Famotidine (Pepcid I.v.) 20 mg Q12HR IVP 10/30/18 09:00 11/29/18 08:59 10/31/18 08:46 Hydromorphone HCl (Dilaudid) 0.5 mg Q3H PRN IVP Pain Score 1-3 10/30/18 03:15 11/06/18 03:14 Hydromorphone HCl (Dilaudid) 1 mg Q3H PRN IVP pain score 4-6 10/30/18 03:15 11/06/18 03:14 10/30/18 05:30 Hydromorphone HCl (Dilaudid) 2 mg Q3H PRN IVP pain score 7-10 10/30/18 03:15 11/06/18 03:14 10/31/18 05:56 Metoclopramide HCl (Reglan) 10 mg Q6H PRN IVP Nausea & Vomiting 10/30/18 03:15 11/29/18 03:14 10/30/18 03:42 Ondansetron HCl (Zofran) 4 mg Q6H PRN IVP Nausea & Vomiting 10/30/18 03:15 11/29/18 03:14 Piperacillin Sod/ Tazobactam Sod 4.5 gm/Sodium Chloride 110 ml @ 27.5 mls/hr EVERY 8 HOURS IVPB 10/30/18 06:00 11/04/18 05:59 10/31/18 05:52 Last 24 Hour Vital Signs Date Time Temp Pulse Resp B/P (MAP) Pulse Ox O2 Delivery O2 Flow Rate FiO2 10/31/18 08:00 97.9 60 20 125/81 (96) 95 10/31/18 04:00 97.6 74 18 132/89 (103) 97 10/31/18 00:00 98.0 79 18 128/74 (92) 97 10/30/18 21:00 Room Air 10/30/18 20:00 97.3 78 18 131/90 (104) 97 10/30/18 16:00 97.8 87 17 130/86 (101) 95 10/30/18 12:00 98.1 92 17 124/79 (94) 93 10/30/18 09:00 Room Air 10/30/18 08:00 97.7 105 18 118/79 (92) 99 10/30/18 04:10 98.4 10/30/18 04:00 97.9 102 18 125/80 (95) 99 10/30/18 03:57 98.4 100 17 111/75 99 Nasal Cannula 3 10/30/18 03:54 Nasal Cannula 2.0 10/30/18 03:50 98 15 117/80 99 Nasal Cannula 3 10/30/18 03:40 107 17 122/81 100 Nasal Cannula 3 10/30/18 03:30 96 16 128/86 100 Nasal Cannula 3 10/30/18 03:20 101 20 124/85 100 Simple Mask 6 10/30/18 03:18 104 22 99 10/30/18 03:15 108 18 118/78 100 Simple Mask 6 10/30/18 03:13 98.8 103 14 117/82 100 Simple Mask 6 10/30/18 01:20 105 22 160/77 96 Room Air 10/30/18 00:35 97.7 105 22 160/77 96 Room Air 10/29/18 23:06 97.7 86 22 156/95 99 Room Air 10/29/18 23:00 85 21 Room Air 10/29/18 22:36 97.7 85 22 162/105 (124) 99 Room Air Intake and Output 10/30/18 10/31/18 19:00 07:00 Intake Total 1587.5 ml Balance 1587.5 ml Intake IV Total 1587.5 ml # Voids 4 3 Labs Test 10/29/18 22:52 10/30/18 18:55 10/31/18 05:25 White Blood Count 18.3 K/UL (4.8-10.8) 11.0 K/UL (4.8-10.8) 8.5 K/UL (4.8-10.8) Red Blood Count 4.95 M/UL (4.70-6.10) 3.90 M/UL (4.70-6.10) 3.72 M/UL (4.70-6.10) Hemoglobin 14.8 G/DL (14.2-18.0) 11.5 G/DL (14.2-18.0) 11.2 G/DL (14.2-18.0) Hematocrit 41.7 % (42.0-52.0) 32.7 % (42.0-52.0) 32.8 % (42.0-52.0) Mean Corpuscular Volume 84 FL (80-99) 84 FL (80-99) 88 FL (80-99) Mean Corpuscular Hemoglobin 29.9 PG (27.0-31.0) 29.4 PG (27.0-31.0) 30.0 PG (27.0-31.0) Mean Corpuscular Hemoglobin Concent 35.6 G/DL (32.0-36.0) 35.0 G/DL (32.0-36.0) 34.1 G/DL (32.0-36.0) Red Cell Distribution Width 10.7 % (11.6-14.8) 10.8 % (11.6-14.8) 11.2 % (11.6-14.8) Platelet Count 226 K/UL (150-450) 186 K/UL (150-450) 195 K/UL (150-450) Mean Platelet Volume 7.6 FL (6.5-10.1) 5.7 FL (6.5-10.1) 7.2 FL (6.5-10.1) Neutrophils (%) (Auto) % (45.0-75.0) 83.2 % (45.0-75.0) 79.2 % (45.0-75.0) Lymphocytes (%) (Auto) % (20.0-45.0) 9.9 % (20.0-45.0) 12.8 % (20.0-45.0) Monocytes (%) (Auto) % (1.0-10.0) 6.1 % (1.0-10.0) 6.3 % (1.0-10.0) Eosinophils (%) (Auto) % (0.0-3.0) 0.1 % (0.0-3.0) 0.7 % (0.0-3.0) Basophils (%) (Auto) % (0.0-2.0) 0.7 % (0.0-2.0) 1.1 % (0.0-2.0) Sodium Level 135 MMOL/L (136-145) 136 MMOL/L (136-145) 138 MMOL/L (136-145) Potassium Level 3.7 MMOL/L (3.5-5.1) 3.7 MMOL/L (3.5-5.1) 4.2 MMOL/L (3.5-5.1) Chloride Level 99 MMOL/L (98-107) 104 MMOL/L (98-107) 105 MMOL/L (98-107) Carbon Dioxide Level 23 MMOL/L (21-32) 24 MMOL/L (21-32) 28 MMOL/L (21-32) Anion Gap 14 mmol/L (5-15) 8 mmol/L (5-15) 5 mmol/L (5-15) Blood Urea Nitrogen 20 mg/dL (7-18) 12 mg/dL (7-18) 9 mg/dL (7-18) Creatinine 1.1 MG/DL (0.55-1.30) 0.9 MG/DL (0.55-1.30) 1.0 MG/DL (0.55-1.30) Estimat Glomerular Filtration Rate > 60 mL/min (>60) > 60 mL/min (>60) > 60 mL/min (>60) Glucose Level 138 MG/DL (74-106) 129 MG/DL (74-106) 120 MG/DL (74-106) Calcium Level 9.7 MG/DL (8.5-10.1) 8.3 MG/DL (8.5-10.1) 8.5 MG/DL (8.5-10.1) Total Bilirubin 1.2 MG/DL (0.2-1.0) Direct Bilirubin 0.2 MG/DL (0.0-0.3) Aspartate Amino Transf (AST/SGOT) 34 U/L (15-37) Alanine Aminotransferase (ALT/SGPT) 46 U/L (12-78) Alkaline Phosphatase 117 U/L (46-116) Total Protein 8.6 G/DL (6.4-8.2) Albumin 4.1 G/DL (3.4-5.0) Globulin 4.5 g/dL Albumin/Globulin Ratio 0.9 (1.0-2.7) Lipase 156 U/L (73-393) Height (Feet): 5 Height (Inches): 1.00 Weight (Pounds): 148 Objective PHYSICAL EXAMINATION: GENERAL: The patient appeared to be a well-developed and well-nourished 53-year -old [place] male, lying on the gurney, complaining of abdominal pain. HEENT: Head is normocephalic and atraumatic. Eyes, pupils are equal, round, and reactive to light. Mouth is clear. NECK: There is no palpable thyromegaly or adenopathy. CHEST: Clear to auscultation and percussion. HEART: There is no gallop or murmur. S1 and S2 are within normal limits. ABDOMEN: Soft and flat with mild tenderness at the left lower quadrant, is now with minor surgical scars+++. EXTERNAL GENITALIA: Genital is normal. EXTREMITIES: Within normal limits. Paul Montiel MD Oct 31, 2018 09:31
--- NOTE | 2018-10-31 10:12 | GI Initial Consult Note ---
History of Present Illness General Date patient seen: Oct 31, 2018 Time patient seen: 10:08 Reason for Hospitalization: Abdominal Pain Referring physician: CLAUDIA MORLEY Reason for Consultation: APPENDICITIS Present Illness HPI Is a 53-year-old male with no past medical history. He presents with chief complaint abdominal pain. Onset for 1 day since this morning. Pain is to the right side. Has nausea vomiting. No diarrhea. No fever chills. Pain is sharp and crampy. 9 out of 10. Vomiting is nonbloody nonbilious. GI consulted for abdominal pain. Patient now status post laparoscopic appendectomy. Patient seen, awake alert and oriented x4. The patient denies any abdominal pain, denies any nausea vomiting, denies any diarrhea. The patient states that that his pain is improved, wishes to be discharged. The patient has no history of endoscopic or colonoscopy. Allergies: Coded Allergies: No Known Allergies (Unverified , 10/29/18) Patient History History Provided By: Patient, Medical Record PMH Narrative Past Medical History: see triage record, old chart reviewed Past Surgical History: none Pertinent Family History: none Social History: Denies: smoking Immunizations: other Reviewed Nursing Documentation: PMH: Agreed; PSxH: Agreed Nursing Documentation-PMH Past Medical History: No Stated History Past Surgical History: none Social History: Denies: smoking, alcohol use, drug use, other Review of Systems All Other Systems: negative except mentioned in HPI Physical Exam Vital Signs Date Time Temp Pulse Resp B/P (MAP) Pulse Ox O2 Delivery O2 Flow Rate FiO2 10/29/18 22:36 97.7 85 22 162/105 (124) 99 Room Air 10/30/18 03:13 6 Sp02 EP Interpretation: reviewed, normal Labs Laboratory Tests Test 10/30/18 18:55 10/31/18 05:25 White Blood Count 11.0 K/UL (4.8-10.8) H 8.5 K/UL (4.8-10.8) Red Blood Count 3.90 M/UL (4.70-6.10) L 3.72 M/UL (4.70-6.10) L Hemoglobin 11.5 G/DL (14.2-18.0) L 11.2 G/DL (14.2-18.0) L Hematocrit 32.7 % (42.0-52.0) L 32.8 % (42.0-52.0) L Mean Corpuscular Volume 84 FL (80-99) 88 FL (80-99) Mean Corpuscular Hemoglobin 29.4 PG (27.0-31.0) 30.0 PG (27.0-31.0) Mean Corpuscular Hemoglobin Concent 35.0 G/DL (32.0-36.0) 34.1 G/DL (32.0-36.0) Red Cell Distribution Width 10.8 % (11.6-14.8) L 11.2 % (11.6-14.8) L Platelet Count 186 K/UL (150-450) 195 K/UL (150-450) Mean Platelet Volume 5.7 FL (6.5-10.1) L 7.2 FL (6.5-10.1) Neutrophils (%) (Auto) 83.2 % (45.0-75.0) H 79.2 % (45.0-75.0) H Lymphocytes (%) (Auto) 9.9 % (20.0-45.0) L 12.8 % (20.0-45.0) L Monocytes (%) (Auto) 6.1 % (1.0-10.0) 6.3 % (1.0-10.0) Eosinophils (%) (Auto) 0.1 % (0.0-3.0) 0.7 % (0.0-3.0) Basophils (%) (Auto) 0.7 % (0.0-2.0) 1.1 % (0.0-2.0) Sodium Level 136 MMOL/L (136-145) 138 MMOL/L (136-145) Potassium Level 3.7 MMOL/L (3.5-5.1) 4.2 MMOL/L (3.5-5.1) Chloride Level 104 MMOL/L (98-107) 105 MMOL/L (98-107) Carbon Dioxide Level 24 MMOL/L (21-32) 28 MMOL/L (21-32) Anion Gap 8 mmol/L (5-15) 5 mmol/L (5-15) Blood Urea Nitrogen 12 mg/dL (7-18) 9 mg/dL (7-18) Creatinine 0.9 MG/DL (0.55-1.30) 1.0 MG/DL (0.55-1.30) Estimat Glomerular Filtration Rate > 60 mL/min (>60) > 60 mL/min (>60) Glucose Level 129 MG/DL (74-106) H 120 MG/DL (74-106) H Calcium Level 8.3 MG/DL (8.5-10.1) L 8.5 MG/DL (8.5-10.1) General Appearance: well appearing, no apparent distress, alert Head: normocephalic EENT: PERRL/EOMI, normal ENT inspection Neck: supple Respiratory: normal breath sounds, no respiratory distress Cardiovascular: normal rate Gastrointestinal: normal inspection, non tender, soft, normal bowel sounds, non -distended Rectal: deferred Genitourinary: deferred Musculoskeletal: normal inspection, back normal Neurologic: normal inspection, alert, oriented x3, responsive Psychiatric: normal inspection, judgement/insight normal, memory normal Skin: normal inspection, normal color, no rash, warm/dry, palpation normal, well hydrated Lymphatic: normal inspection, no adenopathy Current Medications Current Medications Medications (Trade) Dose Ordered Sig/Clint Route PRN Reason Start Time Stop Time Status Last Admin Dose Admin Acetaminophen (Tylenol) 650 mg Q4H PRN RECTAL FEVER 10/30/18 03:15 11/29/18 03:14 Dextrose/ Electrolytes 1,000 ml @ 120 mls/hr Q8H20M IV 10/30/18 20:00 11/29/18 19:59 10/31/18 03:14 Famotidine (Pepcid I.v.) 20 mg Q12HR IVP 10/30/18 09:00 11/29/18 08:59 10/31/18 08:46 Hydromorphone HCl (Dilaudid) 0.5 mg Q3H PRN IVP Pain Score 1-3 10/30/18 03:15 11/06/18 03:14 Hydromorphone HCl (Dilaudid) 1 mg Q3H PRN IVP pain score 4-6 10/30/18 03:15 11/06/18 03:14 10/30/18 05:30 Hydromorphone HCl (Dilaudid) 2 mg Q3H PRN IVP pain score 7-10 10/30/18 03:15 11/06/18 03:14 10/31/18 05:56 Metoclopramide HCl (Reglan) 10 mg Q6H PRN IVP Nausea & Vomiting 10/30/18 03:15 11/29/18 03:14 10/30/18 03:42 Ondansetron HCl (Zofran) 4 mg Q6H PRN IVP Nausea & Vomiting 10/30/18 03:15 11/29/18 03:14 Piperacillin Sod/ Tazobactam Sod 4.5 gm/Sodium Chloride 110 ml @ 27.5 mls/hr EVERY 8 HOURS IVPB 10/30/18 06:00 11/04/18 05:59 10/31/18 05:52 GI: Plan Problems: (1) Anemia (2) Post-operative nausea and vomiting (3) Appendicitis, acute Plan Follow-up surgical recommendations Advance diet per surgery Antibiotics Monitor for postoperative nausea and vomiting Zofran as needed, Reglan for persistent vomiting PPI PRN transfusions Outpatient GI procedures okay for DC per GI standpoint if tolerates PO Discussed with Dr. Morfin. Thank you for this patient referral, we will follow. The patient was seen and examined at bedside and all new and available data was reviewed in the patients chart. I agree with the above findings, impression and plan. (Patient seen earlier today. Signature stamp does not reflect patient encounter time.). - MD Emily Yang,[facility] [place]in TAYLOR Oct 31, 2018 10:12
[2018-10-31] MEDS ORDERED: NS 275ml ONE (11:13)
--- NOTE | 2018-10-31 11:32 | 48 Hour Post Anesthesia Eval ---
Post Anesthesia Evaluation Procedure: Diagnostic laparoscopy open appendectomy Date of Evaluation: Oct 31, 2018 Time of Evaluation: 11:31 Blood Pressure Systolic: 112 0: 76 Pulse Rate: 67 Respiratory Rate: 18 Temperature (Fahrenheit): 97.5 O2 Sat by Pulse Oximetry: 98 Airway: patent Nausea: No Vomiting: No Pain Intensity: 2 Hydration Status: adequate Cardiopulmonary Status: stable Mental Status/LOC: patient returned to baseline Follow-up Care/Observations: n/a Post-Anesthesia Complications: none Follow-up care needed: N/A Georgi Couch MD Oct 31, 2018 11:32
[2018-10-31 12:00] VITALS: BP 145/95
--- NOTE | 2018-10-31 14:39 | General Surgery Progress Note ---
General Surgery-Progress Note Subjective Symptoms: improved Objective Last 24 Hour Vital Signs Date Time Temp Pulse Resp B/P (MAP) Pulse Ox O2 Delivery O2 Flow Rate FiO2 10/31/18 12:00 97.2 90 18 145/95 (112) 96 10/31/18 11:32 67 18 98 10/31/18 09:00 Room Air 10/31/18 08:00 97.9 60 20 125/81 (96) 95 10/31/18 04:00 97.6 74 18 132/89 (103) 97 10/31/18 00:00 98.0 79 18 128/74 (92) 97 10/30/18 21:00 Room Air 10/30/18 20:00 97.3 78 18 131/90 (104) 97 10/30/18 16:00 97.8 87 17 130/86 (101) 95 I&O Intake and Output 10/30/18 10/31/18 19:00 07:00 Intake Total 1587.5 ml Balance 1587.5 ml Intake IV Total 1587.5 ml # Voids 4 3 Dressing: bloody Drains: none Respiratory: clear Abdomen: soft, flat, non-tender, decreased bowel sounds Extremities: no tenderness Laboratory Tests Test 10/30/18 18:55 10/31/18 05:25 White Blood Count 11.0 K/UL (4.8-10.8) H 8.5 K/UL (4.8-10.8) Red Blood Count 3.90 M/UL (4.70-6.10) L 3.72 M/UL (4.70-6.10) L Hemoglobin 11.5 G/DL (14.2-18.0) L 11.2 G/DL (14.2-18.0) L Hematocrit 32.7 % (42.0-52.0) L 32.8 % (42.0-52.0) L Mean Corpuscular Volume 84 FL (80-99) 88 FL (80-99) Mean Corpuscular Hemoglobin 29.4 PG (27.0-31.0) 30.0 PG (27.0-31.0) Mean Corpuscular Hemoglobin Concent 35.0 G/DL (32.0-36.0) 34.1 G/DL (32.0-36.0) Red Cell Distribution Width 10.8 % (11.6-14.8) L 11.2 % (11.6-14.8) L Platelet Count 186 K/UL (150-450) 195 K/UL (150-450) Mean Platelet Volume 5.7 FL (6.5-10.1) L 7.2 FL (6.5-10.1) Neutrophils (%) (Auto) 83.2 % (45.0-75.0) H 79.2 % (45.0-75.0) H Lymphocytes (%) (Auto) 9.9 % (20.0-45.0) L 12.8 % (20.0-45.0) L Monocytes (%) (Auto) 6.1 % (1.0-10.0) 6.3 % (1.0-10.0) Eosinophils (%) (Auto) 0.1 % (0.0-3.0) 0.7 % (0.0-3.0) Basophils (%) (Auto) 0.7 % (0.0-2.0) 1.1 % (0.0-2.0) Sodium Level 136 MMOL/L (136-145) 138 MMOL/L (136-145) Potassium Level 3.7 MMOL/L (3.5-5.1) 4.2 MMOL/L (3.5-5.1) Chloride Level 104 MMOL/L (98-107) 105 MMOL/L (98-107) Carbon Dioxide Level 24 MMOL/L (21-32) 28 MMOL/L (21-32) Anion Gap 8 mmol/L (5-15) 5 mmol/L (5-15) Blood Urea Nitrogen 12 mg/dL (7-18) 9 mg/dL (7-18) Creatinine 0.9 MG/DL (0.55-1.30) 1.0 MG/DL (0.55-1.30) Estimat Glomerular Filtration Rate > 60 mL/min (>60) > 60 mL/min (>60) Glucose Level 129 MG/DL (74-106) H 120 MG/DL (74-106) H Calcium Level 8.3 MG/DL (8.5-10.1) L 8.5 MG/DL (8.5-10.1) Assessment Post-op Diagnosis the same Additional Comments s/p appy Plan Additional Comments continue as before Iván Schafer MD Oct 31, 2018 14:39
[2018-10-31] MEDS ORDERED: traMADol 50mg tab ORAL PRN ×2 (14:45)
--- NOTE | 2018-10-31 15:45 | Infectious Diseases Prog Note ---
Assessment/Plan Assessment/Plan A: 1. Acute appendicitis, status post open appendectomy. 2. Also the patient 3. History of gout. RECOMMENDATION: Continue Zosyn until discharge Subjective ROS Limited/Unobtainable: No Constitutional: Reports: no symptoms Cardiovascular: Reports: no symptoms Gastrointestinal/Abdominal: Reports: no symptoms, other - on liquid diet Genitourinary: Reports: no symptoms Allergies: Coded Allergies: No Known Allergies (Unverified , 10/29/18) Objective Vital Signs Last 24 Hour Vital Signs Date Time Temp Pulse Resp B/P (MAP) Pulse Ox O2 Delivery O2 Flow Rate FiO2 10/31/18 12:00 97.2 90 18 145/95 (112) 96 10/31/18 11:32 67 18 98 10/31/18 09:00 Room Air 10/31/18 08:00 97.9 60 20 125/81 (96) 95 10/31/18 04:00 97.6 74 18 132/89 (103) 97 10/31/18 00:00 98.0 79 18 128/74 (92) 97 10/30/18 21:00 Room Air 10/30/18 20:00 97.3 78 18 131/90 (104) 97 10/30/18 16:00 97.8 87 17 130/86 (101) 95 Height (Feet): 5 Height (Inches): 1.00 Weight (Pounds): 148 General Appearance: no acute distress HEENT: mucous membranes moist Respiratory/Chest: lungs clear Cardiovascular: normal rate Abdomen: soft, non tender, other - R sided dressing Extremities: no edema Neurologic/Psychiatric: alert, oriented x 3, responsive Laboratory Tests Test 10/30/18 18:55 10/31/18 05:25 White Blood Count 11.0 K/UL (4.8-10.8) H 8.5 K/UL (4.8-10.8) Red Blood Count 3.90 M/UL (4.70-6.10) L 3.72 M/UL (4.70-6.10) L Hemoglobin 11.5 G/DL (14.2-18.0) L 11.2 G/DL (14.2-18.0) L Hematocrit 32.7 % (42.0-52.0) L 32.8 % (42.0-52.0) L Mean Corpuscular Volume 84 FL (80-99) 88 FL (80-99) Mean Corpuscular Hemoglobin 29.4 PG (27.0-31.0) 30.0 PG (27.0-31.0) Mean Corpuscular Hemoglobin Concent 35.0 G/DL (32.0-36.0) 34.1 G/DL (32.0-36.0) Red Cell Distribution Width 10.8 % (11.6-14.8) L 11.2 % (11.6-14.8) L Platelet Count 186 K/UL (150-450) 195 K/UL (150-450) Mean Platelet Volume 5.7 FL (6.5-10.1) L 7.2 FL (6.5-10.1) Neutrophils (%) (Auto) 83.2 % (45.0-75.0) H 79.2 % (45.0-75.0) H Lymphocytes (%) (Auto) 9.9 % (20.0-45.0) L 12.8 % (20.0-45.0) L Monocytes (%) (Auto) 6.1 % (1.0-10.0) 6.3 % (1.0-10.0) Eosinophils (%) (Auto) 0.1 % (0.0-3.0) 0.7 % (0.0-3.0) Basophils (%) (Auto) 0.7 % (0.0-2.0) 1.1 % (0.0-2.0) Sodium Level 136 MMOL/L (136-145) 138 MMOL/L (136-145) Potassium Level 3.7 MMOL/L (3.5-5.1) 4.2 MMOL/L (3.5-5.1) Chloride Level 104 MMOL/L (98-107) 105 MMOL/L (98-107) Carbon Dioxide Level 24 MMOL/L (21-32) 28 MMOL/L (21-32) Anion Gap 8 mmol/L (5-15) 5 mmol/L (5-15) Blood Urea Nitrogen 12 mg/dL (7-18) 9 mg/dL (7-18) Creatinine 0.9 MG/DL (0.55-1.30) 1.0 MG/DL (0.55-1.30) Estimat Glomerular Filtration Rate > 60 mL/min (>60) > 60 mL/min (>60) Glucose Level 129 MG/DL (74-106) H 120 MG/DL (74-106) H Calcium Level 8.3 MG/DL (8.5-10.1) L 8.5 MG/DL (8.5-10.1) Current Medications Medications (Trade) Dose Ordered Sig/Clint Route PRN Reason Start Time Stop Time Status Last Admin Dose Admin Acetaminophen (Tylenol) 650 mg Q4H PRN RECTAL FEVER 10/30/18 03:15 11/29/18 03:14 Dextrose/ Electrolytes 1,000 ml @ 120 mls/hr Q8H20M IV 10/30/18 20:00 11/29/18 19:59 10/31/18 13:45 Famotidine (Pepcid I.v.) 20 mg Q12HR IVP 10/30/18 09:00 11/29/18 08:59 10/31/18 08:46 Hydromorphone HCl (Dilaudid) 0.5 mg Q3H PRN IVP Pain Score 1-3 10/30/18 03:15 11/06/18 03:14 Hydromorphone HCl (Dilaudid) 1 mg Q3H PRN IVP pain score 4-6 10/30/18 03:15 11/06/18 03:14 10/30/18 05:30 Hydromorphone HCl (Dilaudid) 2 mg Q3H PRN IVP pain score 7-10 10/30/18 03:15 11/06/18 03:14 10/31/18 05:56 Metoclopramide HCl (Reglan) 10 mg Q6H PRN IVP Nausea & Vomiting 10/30/18 03:15 11/29/18 03:14 10/30/18 03:42 Ondansetron HCl (Zofran) 4 mg Q6H PRN IVP Nausea & Vomiting 10/30/18 03:15 11/29/18 03:14 Piperacillin Sod/ Tazobactam Sod 4.5 gm/Sodium Chloride 110 ml @ 27.5 mls/hr EVERY 8 HOURS IVPB 10/30/18 06:00 11/04/18 05:59 6/6/19 14:39 Senna/Docusate Sodium (Radha-Colace) 1 tab TWICE A DAY ORAL 10/31/18 18:00 11/30/18 17:59 Tramadol HCl (Ultram) 50 mg Q4H PRN ORAL For Pain 10/31/18 14:45 11/07/18 14:44 Luan Morales MD Oct 31, 2018 15:45
--- NOTE | 2018-10-31 15:56 | NUR ---
CASE MANAGEMENT:REVIEW 10/31/18 SI: POD #1 S/P OPEN APPY H/H-11.2/32.8 GLUCOSE+120 IS: IVF@120/HR IV ZOSYN Q8HRS IV DILAUDID Q3HRS PRN : MED/SURG STATUS 3 EAST
[2018-10-31 16:00] VITALS: BP 152/106
--- NOTE | 2018-10-31 16:30 | NUR ---
NURSE NOTES: Surgical dressing changed. No signs and symptoms of infection or bleeding. Will continue to monitor.
--- NOTE | 2018-10-31 16:45 | NUR ---
NURSE NOTES: PATIENT RECEIVED FROM SANA FENTON. PATIENT UP TO BEDSIDE WITH FAMILY PRESENT. ASSESSED ABD SURGICAL SITE; DRSG C/D/I. DENIES PAIN. NO FLATUS PRESENT AT THIS TIME OR BM. DISCUSSED PLAN OF CARE FOR THE REMAINDER OF THE SHIFT. VERBALIZED UNDERSTANDING. QUESTIONS ANSWERED; NEEDS MET. CALL LIGHT WITHIN REACH.
--- NOTE | 2018-10-31 16:50 | NUR ---
HAND-OFF: Report given to Soledad FENTON. Patient in stable condition.
[2018-10-31] MEDS: Docusate Sod/Senna tab ORAL SCH (17:52)
--- NOTE | 2018-10-31 18:36 | NUR ---
NURSE NOTES: PATIENT UP AMBULATING IN HALLWAY. GAIT STEADY. PER PT, PASSING FLATUS NO BM YET. TOELRATING CLD.
--- NOTE | 2018-10-31 19:35 | NUR ---
HAND-OFF: Report given to DONOVAN FENTON.
--- NOTE | 2018-10-31 19:40 | NUR ---
Nurse Notes received report from Soledad FENTON. Pt awake alert x4. pt on room air. no acute respiratory distress noted. pt denies pain at this time. IV to LAC intact. pt able to ambulate with steady gait. freely voiding. dressing to the abdomen intact. no s/s of infection noted. bed in lowest position call light in reach. will continue to monitor
[2018-10-31 20:00] VITALS: BP 146/105
--- NOTE | 2018-10-31 20:30 | NUR ---
NURSE NOTES Pt b/p 146/105. asymptomatic. pt states' his doctor years ago told him his b/p was high but he never was prescribed b/p medications Dr Lyles initially contacted. his reply was to notify Dr. Mcelroy. Dr. Mcelroy notified with new medications orders. will continue to monitor pt b/p and give medication as ordered.
--- NOTE | 2018-10-31 21:32 | General Progress Note ---
Assessment/Plan Problem List: (1) Anemia ICD Codes: D64.9 - Anemia, unspecified SNOMED: 743409687 (2) Appendicitis, acute ICD Codes: K35.80 - Unspecified acute appendicitis SNOMED: 00088809 Qualifiers: Qualified Codes: K35.30 - Acute appendicitis with localized peritonitis, without perforation or gangrene (3) Post-operative nausea and vomiting ICD Codes: R11.2 - Nausea with vomiting, unspecified; Z98.890 - Other specified postprocedural states SNOMED: 4944394 Status: progressing Assessment/Plan: htn open appendectomy nausea anemia dc once clearedd by surgeon Subjective ROS Limited/Unobtainable: Yes Allergies: Coded Allergies: No Known Allergies (Unverified , 10/29/18) Objective Last 24 Hour Vital Signs Date Time Temp Pulse Resp B/P (MAP) Pulse Ox O2 Delivery O2 Flow Rate FiO2 10/31/18 16:00 98.1 82 20 152/106 (121) 97 10/31/18 12:00 97.2 90 18 145/95 (112) 96 10/31/18 11:32 67 18 98 10/31/18 09:00 Room Air 10/31/18 08:00 97.9 60 20 125/81 (96) 95 10/31/18 04:00 97.6 74 18 132/89 (103) 97 10/31/18 00:00 98.0 79 18 128/74 (92) 97 Intake and Output 10/30/18 10/31/18 18:59 06:59 Intake Total 1587.5 ml Balance 1587.5 ml IV Total 1587.5 ml # Voids 7 Laboratory Tests 10/31/18 05:25: White Blood Count 8.5, Red Blood Count 3.72L, Hemoglobin 11.2L, Hematocrit 32.8L , Mean Corpuscular Volume 88, Mean Corpuscular Hemoglobin 30.0, Mean Corpuscular Hemoglobin Concent 34.1, Red Cell Distribution Width 11.2L, Platelet Count 195, Mean Platelet Volume 7.2, Neutrophils (%) (Auto) 79.2H, Lymphocytes (%) (Auto) 12.8L, Monocytes (%) (Auto) 6.3, Eosinophils (%) (Auto) 0.7, Basophils (%) (Auto) 1.1, Sodium Level 138, Potassium Level 4.2, Chloride Level 105, Carbon Dioxide Level 28, Anion Gap 5, Blood Urea Nitrogen 9, Creatinine 1.0, Estimat Glomerular Filtration Rate > 60, Glucose Level 120H, Calcium Level 8.5 Height (Feet): 5 Height (Inches): 1.00 Weight (Pounds): 148 Cardiovascular: normal rate Abdomen: tender Demetrice Low MD Oct 31, 2018 21:32
[2018-10-31] MEDS ORDERED: HydrALAZINE 25mg tab ORAL PRN (21:45)
[2018-11-01] VITALS (7 sets, daily range): BP systolic 130–155; BP diastolic 90–105
--- NOTE | 2018-11-01 00:30 | NUR ---
nurse notes Pt b/p 146/105. pt asymptotic. hydralazine 25mg PO given/ will continue to monitor b/p
[2018-11-01] MEDS: Piperacillin/Tazobactam 4.5 GM in NS 110 ML IVPB SCH ×2 (06:00→08:43)
--- NOTE | 2018-11-01 06:08 | NUR ---
nurse notes Pf refused IV antibiotic Mg states' I want to rest I don't want to be hooked up just yet" Pt instructed on the consequences and benefit of taking prescribed medications. Pt still refused. will endorse to next shift
[2018-11-01 06:27] LABS: HEMATOCRIT 35.3 % (42.0-52.0); LYMPHOCYTES % (AUTO) 18.9 % (20.0-45.0); MEAN CORPUSCULAR VOLUME 87 FL (80-99); MONOCYTES % (AUTO) 7.4 % (1.0-10.0); NEUTROPHILS % (AUTO) 70.7 % (45.0-75.0); PLATELET COUNT 224 K/UL (150-450); RED BLOOD COUNT 4.04 M/UL (4.70-6.10); WHITE BLOOD COUNT 7.6 K/UL (4.8-10.8)
[2018-11-01 06:51] LABS: ANION GAP 8 mmol/L (5-15); BLOOD UREA NITROGEN 7 mg/dL (7-18); CALCIUM 9.4 MG/DL (8.5-10.1); CARBON DIOXIDE 27 MMOL/L (21-32); CHLORIDE 103 MMOL/L (98-107); POTASSIUM 3.7 MMOL/L (3.5-5.1); SODIUM 138 MMOL/L (136-145)
--- NOTE | 2018-11-01 07:10 | NUR ---
NURSE NOTES: Report received from Ese FENTON, rounds made. Patient resting in semi-fowlers position in bed. RFA heplock intact. Informed patient of importance of Zosyn medication, verbalized understanding, will administer dose as ordered. No SOB on RA, pain, or NV. Reinforced clear liquid diet. BS +, flatulence +. Abdomen soft, non-distended. Surgical site x4, dressings intact, mid abdomen (small bloody stained) and right lower quadrant (yellow/cream colored stained). Bilateral SCDs off, patient ambulates to bathroom. Call light in reach, bed in lowest position, will continue to monitor.
[2018-11-01] MEDS: Docusate Sod/Senna tab ORAL SCH ×2 (08:38→17:28)
--- NOTE | 2018-11-01 12:00 | NUR ---
NURSE NOTES: Patient ambulatory in halls, room and BRP. Gait steady. Encouraged IS use 10x/hr, verbalized understanding and demonstrates use correctly. Will continue to monitor.
--- NOTE | 2018-11-01 12:59 | Consultation ---
Consult Note Consult Note asked to eval for BP management Record reviewed patient interviewed examined was told previously to have high BP but never on medications currently post Appendectomy Assessment/Plan HTN - moderate h/o Gout Post appendectomy- on clear liquids Lopressor PRN Hydralazin shanellch THS- Uric acid.... Cristi Good MD Nov 01, 2018 12:59
[2018-11-01] MEDS ORDERED: Metoprolol Tartrate 12.5mg TAB ORAL SCH ×2 (13:00→21:00)
--- NOTE | 2018-11-01 13:08 | Infectious Diseases Prog Note ---
Assessment/Plan Assessment/Plan A: 1. Acute appendicitis, status post open appendectomy. 2. Also the patient 3. History of gout. 4. HPN RECOMMENDATION: Discontinue Zosyn Observe off antibiotic Subjective ROS Limited/Unobtainable: No Constitutional: Reports: no symptoms Respiratory: Reports: no symptoms Cardiovascular: Reports: other Gastrointestinal/Abdominal: Reports: other - had bowel movement today Genitourinary: Reports: no symptoms Allergies: Coded Allergies: No Known Allergies (Unverified , 10/29/18) Objective Vital Signs Last 24 Hour Vital Signs Date Time Temp Pulse Resp B/P (MAP) Pulse Ox O2 Delivery O2 Flow Rate FiO2 11/01/18 08:00 97.3 94 18 136/97 (110) 97 11/01/18 04:00 97.0 86 20 139/100 (113) 99 11/01/18 00:52 136/102 11/01/18 00:00 98.8 88 20 146/105 (119) 98 10/31/18 21:00 Room Air 10/31/18 20:00 98.8 88 20 146/105 (119) 98 10/31/18 16:00 98.1 82 20 152/106 (121) 97 Height (Feet): 5 Height (Inches): 1.00 Weight (Pounds): 148 General Appearance: no acute distress HEENT: mucous membranes moist Respiratory/Chest: lungs clear Cardiovascular: normal rate Abdomen: soft, non tender, other - RUQ dressing Extremities: no edema Neurologic/Psychiatric: alert, oriented x 3, responsive Laboratory Tests Test 11/01/18 05:39 White Blood Count 7.6 K/UL (4.8-10.8) Red Blood Count 4.04 M/UL (4.70-6.10) L Hemoglobin 12.0 G/DL (14.2-18.0) L Hematocrit 35.3 % (42.0-52.0) L Mean Corpuscular Volume 87 FL (80-99) Mean Corpuscular Hemoglobin 29.8 PG (27.0-31.0) Mean Corpuscular Hemoglobin Concent 34.1 G/DL (32.0-36.0) Red Cell Distribution Width 11.0 % (11.6-14.8) L Platelet Count 224 K/UL (150-450) Mean Platelet Volume 7.2 FL (6.5-10.1) Neutrophils (%) (Auto) 70.7 % (45.0-75.0) Lymphocytes (%) (Auto) 18.9 % (20.0-45.0) L Monocytes (%) (Auto) 7.4 % (1.0-10.0) Eosinophils (%) (Auto) 2.0 % (0.0-3.0) Basophils (%) (Auto) 1.0 % (0.0-2.0) Sodium Level 138 MMOL/L (136-145) Potassium Level 3.7 MMOL/L (3.5-5.1) Chloride Level 103 MMOL/L (98-107) Carbon Dioxide Level 27 MMOL/L (21-32) Anion Gap 8 mmol/L (5-15) Blood Urea Nitrogen 7 mg/dL (7-18) Creatinine 1.0 MG/DL (0.55-1.30) Estimat Glomerular Filtration Rate > 60 mL/min (>60) Glucose Level 99 MG/DL (74-106) Hemoglobin A1c Pending Uric Acid Pending Calcium Level 9.4 MG/DL (8.5-10.1) Phosphorus Level Pending Magnesium Level Pending Total Bilirubin Pending Direct Bilirubin Pending Gamma Glutamyl Transpeptidase Pending Aspartate Amino Transf (AST/SGOT) Pending Alanine Aminotransferase (ALT/SGPT) Pending Alkaline Phosphatase Pending Total Protein Pending Albumin Pending Triglycerides Level Pending Cholesterol Level Pending LDL Cholesterol Pending HDL Cholesterol Pending Cholesterol/HDL Ratio Pending Thyroid Stimulating Hormone (TSH) Pending Current Medications Medications (Trade) Dose Ordered Sig/Clint Route PRN Reason Start Time Stop Time Status Last Admin Dose Admin Acetaminophen (Tylenol) 650 mg Q4H PRN RECTAL FEVER 10/30/18 03:15 11/29/18 03:14 Hydralazine HCl (Apresoline) 25 mg Q4H PRN ORAL SBP >160 DBP >100 10/31/18 21:45 11/30/18 21:44 11/01/18 00:52 Hydromorphone HCl (Dilaudid) 0.5 mg Q3H PRN IVP Pain Score 1-3 10/30/18 03:15 11/06/18 03:14 Hydromorphone HCl (Dilaudid) 1 mg Q3H PRN IVP pain score 4-6 10/30/18 03:15 11/06/18 03:14 10/30/18 05:30 Hydromorphone HCl (Dilaudid) 2 mg Q3H PRN IVP pain score 7-10 10/30/18 03:15 11/06/18 03:14 10/31/18 05:56 Metoclopramide HCl (Reglan) 10 mg Q6H PRN IVP Nausea & Vomiting 10/30/18 03:15 11/29/18 03:14 10/30/18 03:42 Metoprolol Tartrate (Lopressor) 12.5 mg ONCE ORAL 11/01/18 13:00 11/01/18 14:00 Metoprolol Tartrate (Lopressor) 12.5 mg Q12HR ORAL 11/01/18 21:00 12/01/18 20:59 Ondansetron HCl (Zofran) 4 mg Q6H PRN IVP Nausea & Vomiting 10/30/18 03:15 11/29/18 03:14 Pantoprazole (Protonix) 40 mg BID ORAL 11/01/18 18:00 12/01/18 17:59 Piperacillin Sod/ Tazobactam Sod 4.5 gm/Sodium Chloride 110 ml @ 27.5 mls/hr EVERY 8 HOURS IVPB 10/30/18 06:00 11/04/18 05:59 11/01/18 08:43 Senna/Docusate Sodium (Radha-Colace) 1 tab TWICE A DAY ORAL 10/31/18 18:00 11/30/18 17:59 11/01/18 08:38 Tramadol HCl (Ultram) 50 mg Q4H PRN ORAL For Pain 10/31/18 14:45 11/07/18 14:44 Luan Morales MD Nov 01, 2018 13:08
[2018-11-01 13:19] LABS: ALANINE AMINOTRANSFERASE 58 U/L (12-78); ALBUMIN 3.2 G/DL (3.4-5.0); ALKALINE PHOSPHATASE 130 U/L (46-116); ASPARTATE AMINO TRANSFERASE 48 U/L (15-37); BILIRUBIN,DIRECT 0.2 MG/DL (0.0-0.3); PHOSPHORUS 3.2 MG/DL (2.5-4.9)
--- NOTE | 2018-11-01 13:20 | Hematology/Onc Progress Note ---
Assessment/Plan Assessment/Plan ASSESSMENT AND PLAN # Anemia of chronic disease (or of iron deficiency) due to underlying chronic medical issues, multifactorial --> Currently stable with Hgb >11 --> No evidence of hemolysis is noted, peripheral smear has been reviewed. --> Hgb goal >7. Transfuse prn. --> Epogen or iron at this time is not particularly indicated --> Medications have been reviewed --> low threshold for gi evaluation in case has occult + --> bone marrow biopsy is not indicated given the other more likely causes --> hgb trend: 14.8-->11.2 # Leukocytosis/elevated white blood cell count, unspecified likely related to acute appendicitis --> Currently resolved --> have reviewed peripheral smear and bandemia/neutrophilia noted --> continue antibiotics if they have been started by ID team --> monitor for resolution --> WBC trend: 18.3-->11-->8.5 # Hyperproteinemia -- likely reactive given no other findings --> recheck in future, make sure no malignancy # Acute appendicitis. S/P diagnostic laparoscopy open appendectomy --> appreciate surgical recs --> re-eval if recurreing abd pain # HYperbilirubinemia - due to abdominal process --> should improve after surgery # Hyperglycemia - from IVF --> does not appear to have DM The time note is entered does not necessarily reflect the time patient was examined. Greatly appreciate the consultation. Subjective Subjective Allergies: Coded Allergies: No Known Allergies (Unverified , 10/29/18) All Systems: reviewed and negative except above Subjective 10/31: Patient lying in bed awake. No complaints of pain or distress at this time. 11/01: No acute events reported. Subjective Allergies: Coded Allergies: No Known Allergies (Unverified , 10/29/18) Objective Objective Current Medications Medications (Trade) Dose Ordered Sig/Clint Route PRN Reason Start Time Stop Time Status Last Admin Dose Admin Acetaminophen (Tylenol) 650 mg Q4H PRN RECTAL FEVER 10/30/18 03:15 11/29/18 03:14 Hydralazine HCl (Apresoline) 25 mg Q4H PRN ORAL SBP >160 DBP >100 10/31/18 21:45 11/30/18 21:44 11/01/18 00:52 Hydromorphone HCl (Dilaudid) 0.5 mg Q3H PRN IVP Pain Score 1-3 10/30/18 03:15 11/06/18 03:14 Hydromorphone HCl (Dilaudid) 1 mg Q3H PRN IVP pain score 4-6 10/30/18 03:15 11/06/18 03:14 10/30/18 05:30 Hydromorphone HCl (Dilaudid) 2 mg Q3H PRN IVP pain score 7-10 10/30/18 03:15 11/06/18 03:14 10/31/18 05:56 Metoclopramide HCl (Reglan) 10 mg Q6H PRN IVP Nausea & Vomiting 10/30/18 03:15 11/29/18 03:14 10/30/18 03:42 Metoprolol Tartrate (Lopressor) 12.5 mg ONCE ORAL 11/01/18 13:00 11/01/18 14:00 Metoprolol Tartrate (Lopressor) 12.5 mg Q12HR ORAL 11/01/18 21:00 12/01/18 20:59 Ondansetron HCl (Zofran) 4 mg Q6H PRN IVP Nausea & Vomiting 10/30/18 03:15 11/29/18 03:14 Pantoprazole (Protonix) 40 mg BID ORAL 11/01/18 18:00 12/01/18 17:59 Senna/Docusate Sodium (Radha-Colace) 1 tab TWICE A DAY ORAL 10/31/18 18:00 11/30/18 17:59 11/01/18 08:38 Tramadol HCl (Ultram) 50 mg Q4H PRN ORAL For Pain 10/31/18 14:45 11/07/18 14:44 Last 24 Hour Vital Signs Date Time Temp Pulse Resp B/P (MAP) Pulse Ox O2 Delivery O2 Flow Rate FiO2 11/01/18 08:00 97.3 94 18 136/97 (110) 97 11/01/18 04:00 97.0 86 20 139/100 (113) 99 11/01/18 00:52 136/102 11/01/18 00:00 98.8 88 20 146/105 (119) 98 10/31/18 21:00 Room Air 10/31/18 20:00 98.8 88 20 146/105 (119) 98 10/31/18 16:00 98.1 82 20 152/106 (121) 97 10/31/18 12:00 97.2 90 18 145/95 (112) 96 10/31/18 11:32 67 18 98 10/31/18 09:00 Room Air 10/31/18 08:00 97.9 60 20 125/81 (96) 95 10/31/18 04:00 97.6 74 18 132/89 (103) 97 10/31/18 00:00 98.0 79 18 128/74 (92) 97 10/30/18 21:00 Room Air 10/30/18 20:00 97.3 78 18 131/90 (104) 97 10/30/18 16:00 97.8 87 17 130/86 (101) 95 Intake and Output 10/31/18 11/01/18 19:00 07:00 Intake Total 400 ml Balance 400 ml Intake Oral 400 ml # Voids 4 3 Labs Test 10/29/18 22:52 10/30/18 18:55 10/31/18 05:25 11/01/18 05:39 White Blood Count 18.3 K/UL (4.8-10.8) 11.0 K/UL (4.8-10.8) 8.5 K/UL (4.8-10.8) 7.6 K/UL (4.8-10.8) Red Blood Count 4.95 M/UL (4.70-6.10) 3.90 M/UL (4.70-6.10) 3.72 M/UL (4.70-6.10) 4.04 M/UL (4.70-6.10) Hemoglobin 14.8 G/DL (14.2-18.0) 11.5 G/DL (14.2-18.0) 11.2 G/DL (14.2-18.0) 12.0 G/DL (14.2-18.0) Hematocrit 41.7 % (42.0-52.0) 32.7 % (42.0-52.0) 32.8 % (42.0-52.0) 35.3 % (42.0-52.0) Mean Corpuscular Volume 84 FL (80-99) 84 FL (80-99) 88 FL (80-99) 87 FL (80- 99) Mean Corpuscular Hemoglobin 29.9 PG (27.0-31.0) 29.4 PG (27.0-31.0) 30.0 PG (27.0-31.0) 29.8 PG (27.0-31.0) Mean Corpuscular Hemoglobin Concent 35.6 G/DL (32.0-36.0) 35.0 G/DL (32.0-36.0) 34.1 G/DL (32.0-36.0) 34.1 G/DL (32.0-36.0) Red Cell Distribution Width 10.7 % (11.6-14.8) 10.8 % (11.6-14.8) 11.2 % (11.6-14.8) 11.0 % (11.6-14.8) Platelet Count 226 K/UL (150-450) 186 K/UL (150-450) 195 K/UL (150-450) 224 K/UL (150-450) Mean Platelet Volume 7.6 FL (6.5-10.1) 5.7 FL (6.5-10.1) 7.2 FL (6.5-10.1) 7.2 FL (6.5-10.1) Neutrophils (%) (Auto) % (45.0-75.0) 83.2 % (45.0-75.0) 79.2 % (45.0-75.0) 70.7 % (45.0-75.0) Lymphocytes (%) (Auto) % (20.0-45.0) 9.9 % (20.0-45.0) 12.8 % (20.0-45.0) 18.9 % (20.0-45.0) Monocytes (%) (Auto) % (1.0-10.0) 6.1 % (1.0-10.0) 6.3 % (1.0-10.0) 7.4 % (1.0-10.0) Eosinophils (%) (Auto) % (0.0-3.0) 0.1 % (0.0-3.0) 0.7 % (0.0-3.0) 2.0 % (0.0-3.0) Basophils (%) (Auto) % (0.0-2.0) 0.7 % (0.0-2.0) 1.1 % (0.0-2.0) 1.0 % (0.0-2.0) Sodium Level 135 MMOL/L (136-145) 136 MMOL/L (136-145) 138 MMOL/L (136-145) 138 MMOL/L (136-145) Potassium Level 3.7 MMOL/L (3.5-5.1) 3.7 MMOL/L (3.5-5.1) 4.2 MMOL/L (3.5-5.1) 3.7 MMOL/L (3.5-5.1) Chloride Level 99 MMOL/L (98-107) 104 MMOL/L (98-107) 105 MMOL/L (98-107) 103 MMOL/L (98-107) Carbon Dioxide Level 23 MMOL/L (21-32) 24 MMOL/L (21-32) 28 MMOL/L (21-32) 27 MMOL/L (21-32) Anion Gap 14 mmol/L (5-15) 8 mmol/L (5-15) 5 mmol/L (5-15) 8 mmol/L (5-15) Blood Urea Nitrogen 20 mg/dL (7-18) 12 mg/dL (7-18) 9 mg/dL (7-18) 7 mg/dL (7-18) Creatinine 1.1 MG/DL (0.55-1.30) 0.9 MG/DL (0.55-1.30) 1.0 MG/DL (0.55-1.30) 1.0 MG/DL (0.55-1.30) Estimat Glomerular Filtration Rate > 60 mL/min (>60) > 60 mL/min (>60) > 60 mL/min (>60) > 60 mL/min (>60) Glucose Level 138 MG/DL (74-106) 129 MG/DL (74-106) 120 MG/DL (74-106) 99 MG/DL (74-106) Calcium Level 9.7 MG/DL (8.5-10.1) 8.3 MG/DL (8.5-10.1) 8.5 MG/DL (8.5-10.1) 9.4 MG/DL (8.5-10.1) Total Bilirubin 1.2 MG/DL (0.2-1.0) Direct Bilirubin 0.2 MG/DL (0.0-0.3) Aspartate Amino Transf (AST/SGOT) 34 U/L (15-37) Alanine Aminotransferase (ALT/SGPT) 46 U/L (12-78) Alkaline Phosphatase 117 U/L (46-116) Total Protein 8.6 G/DL (6.4-8.2) Albumin 4.1 G/DL (3.4-5.0) Globulin 4.5 g/dL Albumin/Globulin Ratio 0.9 (1.0-2.7) Lipase 156 U/L (73-393) Hemoglobin A1c 5.5 % (4.3-6.0) Height (Feet): 5 Height (Inches): 1.00 Weight (Pounds): 148 Objective Objective General: No acute distress. HEENT: Head is normocephalic and atraumatic. Eyes, pupils are equal, round, and reactive to light. Mouth is clear. NECK: There is no palpable thyromegaly or adenopathy. CHEST: Clear to auscultation and percussion. HEART: There is no gallop or murmur. S1 and S2 are within normal limits. ABDOMEN: Soft and flat with mild tenderness at the left lower quadrant, is now with minor surgical scars+++. EXTERNAL GENITALIA: Genital is normal. EXTREMITIES: Within normal limits. Addis Zaldivar NP Nov 01, 2018 13:20
[2018-11-01 13:27] LABS: CHOLESTEROL 192 MG/DL (< 200); GAMMA GLUTAMYL TRANSPEPTIDASE 201 U/L (5-85); HDL CHOLESTEROL 39 MG/DL (40-60); TRIGLYCERIDES 132 MG/DL (30-150)
--- NOTE | 2018-11-01 14:20 | NUR ---
CASE MANAGEMENT:REVIEW 11/01/18 SI: POD #2 S/P OPEN APPY 97.3 100 18 155/94 97% ON RA IS: LOPRESSOR PO Q12 PROTONIX PO BID IV DILAUDID Q3HRS PRN : MED/SURG STATUS 3 [facility]
[2018-11-01 14:31] LABS: APPEARANCE,URINE CLEAR; BILIRUBIN, URINE NEGATIVE (NEGATIVE); COLOR,URINE PALE YELLOW; GLUCOSE, URINE (UA) NEGATIVE (NEGATIVE); KETONES,URINE NEGATIVE (NEGATIVE); LEUKOCYTE ESTERASE ,URINE NEGATIVE (NEGATIVE); NITRITE,URINE NEGATIVE (NEGATIVE); PH,URINE 7 (4.5-8.0); PROTEIN,URINE NEGATIVE (NEGATIVE); UROBILINOGEN,URINE NORMAL MG/DL (0.0-1.0)
--- NOTE | 2018-11-01 17:30 | NUR ---
NURSE NOTES: Dr. Parham notified of soft/liquid, brown, moderate BM, orders to advance diet to regular and plan for discharge tomorrow 11/02. Patient notified of new orders. Tolerated regular diet, no NV. Will continue to monitor.
--- NOTE | 2018-11-01 18:13 | General Surgery Progress Note ---
General Surgery-Progress Note Subjective Symptoms: improved, BM Objective Last 24 Hour Vital Signs Date Time Temp Pulse Resp B/P (MAP) Pulse Ox O2 Delivery O2 Flow Rate FiO2 11/01/18 16:00 98.5 70 17 139/101 (114) 96 11/01/18 13:39 100 155/94 11/01/18 12:30 Room Air 11/01/18 12:00 98.6 100 18 155/94 (114) 97 11/01/18 09:00 Room Air 11/01/18 08:00 97.3 94 18 136/97 (110) 97 11/01/18 04:00 97.0 86 20 139/100 (113) 99 11/01/18 00:52 136/102 11/01/18 00:00 98.8 88 20 146/105 (119) 98 10/31/18 21:00 Room Air 10/31/18 20:00 98.8 88 20 146/105 (119) 98 I&O Intake and Output 10/31/18 11/01/18 19:00 07:00 Intake Total 400 ml Balance 400 ml Intake Oral 400 ml # Voids 4 3 Dressing: dry Wound: clean Drains: none Respiratory: clear Abdomen: soft, flat, non-tender, present bowel sounds Laboratory Tests Test 11/01/18 05:39 11/01/18 13:55 White Blood Count 7.6 K/UL (4.8-10.8) Red Blood Count 4.04 M/UL (4.70-6.10) L Hemoglobin 12.0 G/DL (14.2-18.0) L Hematocrit 35.3 % (42.0-52.0) L Mean Corpuscular Volume 87 FL (80-99) Mean Corpuscular Hemoglobin 29.8 PG (27.0-31.0) Mean Corpuscular Hemoglobin Concent 34.1 G/DL (32.0-36.0) Red Cell Distribution Width 11.0 % (11.6-14.8) L Platelet Count 224 K/UL (150-450) Mean Platelet Volume 7.2 FL (6.5-10.1) Neutrophils (%) (Auto) 70.7 % (45.0-75.0) Lymphocytes (%) (Auto) 18.9 % (20.0-45.0) L Monocytes (%) (Auto) 7.4 % (1.0-10.0) Eosinophils (%) (Auto) 2.0 % (0.0-3.0) Basophils (%) (Auto) 1.0 % (0.0-2.0) Sodium Level 138 MMOL/L (136-145) Potassium Level 3.7 MMOL/L (3.5-5.1) Chloride Level 103 MMOL/L (98-107) Carbon Dioxide Level 27 MMOL/L (21-32) Anion Gap 8 mmol/L (5-15) Blood Urea Nitrogen 7 mg/dL (7-18) Creatinine 1.0 MG/DL (0.55-1.30) Estimat Glomerular Filtration Rate > 60 mL/min (>60) Glucose Level 99 MG/DL (74-106) Hemoglobin A1c 5.5 % (4.3-6.0) Uric Acid 3.7 MG/DL (2.6-7.2) Calcium Level 9.4 MG/DL (8.5-10.1) Phosphorus Level 3.2 MG/DL (2.5-4.9) Magnesium Level 2.3 MG/DL (1.8-2.4) Total Bilirubin 1.0 MG/DL (0.2-1.0) Direct Bilirubin 0.2 MG/DL (0.0-0.3) Gamma Glutamyl Transpeptidase 201 U/L (5-85) H Aspartate Amino Transf (AST/SGOT) 48 U/L (15-37) H Alanine Aminotransferase (ALT/SGPT) 58 U/L (12-78) Alkaline Phosphatase 130 U/L (46-116) H Total Protein 7.0 G/DL (6.4-8.2) Albumin 3.2 G/DL (3.4-5.0) L Triglycerides Level 132 MG/DL (30-150) Cholesterol Level 192 MG/DL (< 200) LDL Cholesterol 126 mg/dL (<100) H HDL Cholesterol 39 MG/DL (40-60) L Cholesterol/HDL Ratio 4.9 (3.3-4.4) H Thyroid Stimulating Hormone (TSH) 2.481 uiU/mL (0.358-3.740) Urine Color Pale yellow Urine Appearance Clear Urine pH 7 (4.5-8.0) Urine Specific [place] 1.005 (1.005-1.035) Urine Protein Negative (NEGATIVE) Urine Glucose (UA) Negative (NEGATIVE) Urine Ketones Negative (NEGATIVE) Urine Blood Negative (NEGATIVE) Urine Nitrite Negative (NEGATIVE) Urine Bilirubin Negative (NEGATIVE) Urine Urobilinogen Normal MG/DL (0.0-1.0) Urine Leukocyte Esterase Negative (NEGATIVE) Urine RBC 0 /HPF (0 - 0) Urine WBC 0 /HPF (0 - 0) Urine Squamous Epithelial Cells Occasional /LPF Urine Bacteria None /HPF (NONE) Assessment Post-op Diagnosis the same Additional Comments S/P open Appy Plan Additional Comments discharge to home in AM Iván Schafer MD Nov 01, 2018 18:13
--- NOTE | 2018-11-01 18:15 | Discharge Instructions ---
Discharge Instructions Discharge Instructions Follow up with: my office in one week Diet: regular Resume Normal Activity?: Yes Activity: as tolerated For Surgical Patients May shower: Yes For Congestive Heart Failure Reminder Report to your physician any weight gain of 5 pounds or more in one week. Iván Schafer MD Nov 01, 2018 18:15
--- NOTE | 2018-11-01 19:35 | NUR ---
HAND-OFF: Report given to Markel FENTON.
--- NOTE | 2018-11-01 19:45 | NUR ---
NURSE NOTES: Pt lying in bed w/family at bedside, bed in lowest position, and call light within reach. Pt A&Ox4, VSS, and in no apparent distress. IV site intact/asymptomatic & H/L'd; bowel sounds present; and surgical dressings C/D/I. Will continue to monitor.
--- NOTE | 2018-11-01 22:22 | General Progress Note ---
Assessment/Plan Problem List: (1) Anemia ICD Codes: D64.9 - Anemia, unspecified SNOMED: 182319930 (2) Appendicitis, acute ICD Codes: K35.80 - Unspecified acute appendicitis SNOMED: 98886435 Qualifiers: Qualified Codes: K35.30 - Acute appendicitis with localized peritonitis, without perforation or gangrene (3) Post-operative nausea and vomiting ICD Codes: R11.2 - Nausea with vomiting, unspecified; Z98.890 - Other specified postprocedural states SNOMED: 7679474 Status: progressing Assessment/Plan: htn open appendectomy dc once cleared by surgeon afebrile dr debra holt is also consulted Subjective Gastrointestinal/Abdominal: Reports: abdominal pain Allergies: Coded Allergies: No Known Allergies (Unverified , 10/29/18) Objective Last 24 Hour Vital Signs Date Time Temp Pulse Resp B/P (MAP) Pulse Ox O2 Delivery O2 Flow Rate FiO2 11/01/18 21:45 73 130/95 11/01/18 20:00 99.1 73 18 130/95 (107) 98 11/01/18 17:30 93 148/90 (109) 11/01/18 17:00 Room Air 11/01/18 16:00 98.5 70 17 139/101 (114) 96 11/01/18 13:39 100 155/94 11/01/18 12:30 Room Air 11/01/18 12:00 98.6 100 18 155/94 (114) 97 11/01/18 09:00 Room Air 11/01/18 08:00 97.3 94 18 136/97 (110) 97 11/01/18 04:00 97.0 86 20 139/100 (113) 99 11/01/18 00:52 136/102 11/01/18 00:00 98.8 88 20 146/105 (119) 98 Intake and Output 10/31/18 11/01/18 19:00 07:00 Intake Total 400 ml Balance 400 ml Intake Oral 400 ml # Voids 4 3 Laboratory Tests 11/01/18 05:39: White Blood Count 7.6, Red Blood Count 4.04L, Hemoglobin 12.0L, Hematocrit 35.3L , Mean Corpuscular Volume 87, Mean Corpuscular Hemoglobin 29.8, Mean Corpuscular Hemoglobin Concent 34.1, Red Cell Distribution Width 11.0L, Platelet Count 224, Mean Platelet Volume 7.2, Neutrophils (%) (Auto) 70.7, Lymphocytes (%) (Auto) 18.9L, Monocytes (%) (Auto) 7.4, Eosinophils (%) (Auto) 2.0, Basophils (%) (Auto) 1.0, Sodium Level 138, Potassium Level 3.7, Chloride Level 103, Carbon Dioxide Level 27, Anion Gap 8, Blood Urea Nitrogen 7, Creatinine 1.0, Estimat Glomerular Filtration Rate > 60, Glucose Level 99, Hemoglobin A1c 5.5, Uric Acid 3.7, Calcium Level 9.4, Phosphorus Level 3.2, Magnesium Level 2.3, Total Bilirubin 1.0, Direct Bilirubin 0.2, Gamma Glutamyl Transpeptidase 201H, Aspartate Amino Transf (AST/SGOT) 48H, Alanine Aminotransferase (ALT/SGPT) 58, Alkaline Phosphatase 130H, Total Protein 7.0, Albumin 3.2L, Triglycerides Level 132, Cholesterol Level 192, LDL Cholesterol 126H, HDL Cholesterol 39L, Cholesterol/HDL Ratio 4.9H, Thyroid Stimulating Hormone (TSH) 2.481 11/01/18 13:55: Urine Color Pale yellow, Urine Appearance Clear, Urine pH 7, Urine Specific [place] 1.005, Urine Protein Negative, Urine Glucose (UA) Negative, Urine Ketones Negative, Urine Blood Negative, Urine Nitrite Negative, Urine Bilirubin Negative, Urine Urobilinogen Normal, Urine Leukocyte Esterase Negative, Urine RBC 0, Urine WBC 0, Urine Squamous Epithelial Cells Occasional, Urine Bacteria None Height (Feet): 5 Height (Inches): 1.00 Weight (Pounds): 148 Abdomen: tender Demetrice Low MD Nov 01, 2018 22:22
[2018-11-02] VITALS: BP 151/100
[2018-11-02 04:00] VITALS: BP 140/94
--- NOTE | 2018-11-02 07:55 | NUR ---
NURSE NOTES: Report received from Markel FENTON, rounds made. Patient sitting at bedside, alert, oriented x4 calm. No distress on RA, denies pain, no NV, tolerated regular diet breakfast. Abdominal dressings to mid lower and left lower abdomen CDI. [place] to umbical site and RLQ intact, no redness, swelling or drainage noted. RAC heplock intact, asymptomatic. Encouraged IS use. Call light in reach, bed in lowest position, will continue to monitor.
--- NOTE | 2018-11-02 07:57 | NUR ---
HAND-OFF: Report given to ELICEO Gallagher.
[2018-11-02 08:00] VITALS: BP 145/101
[2018-11-02] MEDS: Docusate Sod/Senna tab ORAL SCH (09:00)
[2018-11-02] MEDS ORDERED: Metoprolol 25mg tab ORAL SCH (09:30)
--- NOTE | 2018-11-02 09:30 | NUR ---
NURSE NOTES: Patient reports that he had x2 BFS BM today after breakfast. No bleeding to rectal/stool or surgical site. Denies pain. VSS. Will continue to monitor.
--- NOTE | 2018-11-02 11:50 | Nephrology Progress Note ---
Assessment/Plan Problem List: (1) Appendicitis, acute (2) HTN (hypertension) (3) History of gout Plan BP stable on Lopressor 25 BID fu as OP with PMD for further adjustment of BP meds Subjective ROS Limited/Unobtainable: No Objective Objective Last 24 Hour Vital Signs Date Time Temp Pulse Resp B/P (MAP) Pulse Ox O2 Delivery O2 Flow Rate FiO2 11/02/18 09:54 85 145/101 11/02/18 08:00 98.4 85 20 145/101 (116) 97 11/02/18 04:00 97.6 63 18 140/94 (109) 97 11/02/18 00:00 98.2 75 18 151/100 (117) 99 11/01/18 21:45 73 130/95 11/01/18 21:00 Room Air 11/01/18 20:00 99.1 73 18 130/95 (107) 98 11/01/18 17:30 93 148/90 (109) 11/01/18 17:00 Room Air 11/01/18 16:00 98.5 70 17 139/101 (114) 96 11/01/18 13:39 100 155/94 11/01/18 12:30 Room Air 11/01/18 12:00 98.6 100 18 155/94 (114) 97 Intake and Output 11/01/18 11/02/18 19:00 07:00 Intake Total 2101 ml 500 ml Balance 2101 ml 500 ml Intake Oral 2101 ml 500 ml # Voids 6 2 # Bowel Movements 4 Current Medications Medications (Trade) Dose Ordered Sig/Clint Route PRN Reason Start Time Stop Time Status Last Admin Dose Admin Acetaminophen (Tylenol) 650 mg Q4H PRN RECTAL FEVER 10/30/18 03:15 11/29/18 03:14 Hydralazine HCl (Apresoline) 25 mg Q4H PRN ORAL SBP >160 DBP >100 10/31/18 21:45 11/30/18 21:44 11/01/18 00:52 Hydromorphone HCl (Dilaudid) 0.5 mg Q3H PRN IVP Pain Score 1-3 10/30/18 03:15 11/06/18 03:14 Hydromorphone HCl (Dilaudid) 1 mg Q3H PRN IVP pain score 4-6 10/30/18 03:15 11/06/18 03:14 10/30/18 05:30 Hydromorphone HCl (Dilaudid) 2 mg Q3H PRN IVP pain score 7-10 10/30/18 03:15 11/06/18 03:14 10/31/18 05:56 Metoclopramide HCl (Reglan) 10 mg Q6H PRN IVP Nausea & Vomiting 10/30/18 03:15 11/29/18 03:14 10/30/18 03:42 Metoprolol Tartrate (Lopressor) 25 mg Q12HR ORAL 11/02/18 09:30 12/01/18 20:59 11/02/18 09:54 Ondansetron HCl (Zofran) 4 mg Q6H PRN IVP Nausea & Vomiting 10/30/18 03:15 11/29/18 03:14 Pantoprazole (Protonix) 40 mg BID ORAL 11/01/18 18:00 12/01/18 17:59 11/02/18 09:54 Senna/Docusate Sodium (Radha-Colace) 1 tab TWICE A DAY ORAL 10/31/18 18:00 11/30/18 17:59 11/01/18 08:38 Tramadol HCl (Ultram) 50 mg Q4H PRN ORAL For Pain 10/31/18 14:45 11/07/18 14:44 Laboratory Tests 11/01/18 13:55: Urine Color Pale yellow, Urine Appearance Clear, Urine pH 7, Urine Specific [place] 1.005, Urine Protein Negative, Urine Glucose (UA) Negative, Urine Ketones Negative, Urine Blood Negative, Urine Nitrite Negative, Urine Bilirubin Negative, Urine Urobilinogen Normal, Urine Leukocyte Esterase Negative, Urine RBC 0, Urine WBC 0, Urine Squamous Epithelial Cells Occasional, Urine Bacteria None Height (Feet): 5 Height (Inches): 1.00 Weight (Pounds): 148 General Appearance: no apparent distress Cardiovascular: normal rate Respiratory/Chest: lungs clear Abdomen: soft Objective no change Cristi Good MD Nov 02, 2018 11:50
[2018-11-02 12:00] VITALS: BP 146/100
--- NOTE | 2018-11-02 12:43 | General Progress Note ---
Assessment/Plan Problem List: (1) Anemia ICD Codes: D64.9 - Anemia, unspecified SNOMED: 180817826 (2) Appendicitis, acute ICD Codes: K35.80 - Unspecified acute appendicitis SNOMED: 68983452 Qualifiers: Qualified Codes: K35.30 - Acute appendicitis with localized peritonitis, without perforation or gangrene (3) Post-operative nausea and vomiting ICD Codes: R11.2 - Nausea with vomiting, unspecified; Z98.890 - Other specified postprocedural states SNOMED: 2800176 Status: progressing Assessment/Plan: htn open appendectomy dc is per dr li tolerate diet Subjective Allergies: Coded Allergies: No Known Allergies (Unverified , 10/29/18) Objective Last 24 Hour Vital Signs Date Time Temp Pulse Resp B/P (MAP) Pulse Ox O2 Delivery O2 Flow Rate FiO2 11/02/18 12:00 98.0 65 19 146/100 (115) 97 11/02/18 09:54 85 145/101 11/02/18 09:00 Room Air 11/02/18 08:00 98.4 85 20 145/101 (116) 97 11/02/18 04:00 97.6 63 18 140/94 (109) 97 11/02/18 00:00 98.2 75 18 151/100 (117) 99 11/01/18 21:45 73 130/95 11/01/18 21:00 Room Air 11/01/18 20:00 99.1 73 18 130/95 (107) 98 11/01/18 17:30 93 148/90 (109) 11/01/18 17:00 Room Air 11/01/18 16:00 98.5 70 17 139/101 (114) 96 11/01/18 13:39 100 155/94 Intake and Output 11/01/18 11/02/18 19:00 07:00 Intake Total 2101 ml 500 ml Balance 2101 ml 500 ml Intake Oral 2101 ml 500 ml # Voids 6 2 # Bowel Movements 4 Laboratory Tests 11/01/18 13:55: Urine Color Pale yellow, Urine Appearance Clear, Urine pH 7, Urine Specific [place] 1.005, Urine Protein Negative, Urine Glucose (UA) Negative, Urine Ketones Negative, Urine Blood Negative, Urine Nitrite Negative, Urine Bilirubin Negative, Urine Urobilinogen Normal, Urine Leukocyte Esterase Negative, Urine RBC 0, Urine WBC 0, Urine Squamous Epithelial Cells Occasional, Urine Bacteria None Height (Feet): 5 Height (Inches): 1.00 Weight (Pounds): 148 Demetrice Low MD Nov 02, 2018 12:43
[2018-11-02] MEDS ORDERED: CEPHALEXIN500 MG ORAL (12:47)
[2018-11-02] MEDS ORDERED: TRAMADOL HCL50 MG ORAL (12:47)
[2018-11-02] MEDS ORDERED: METOPROLOL TART25 MG ORAL (12:51)
[2018-11-02] MEDS ORDERED: NS 275ml ONE (13:29)
--- NOTE | 2018-11-02 13:30 | NUR ---
NURSE NOTES: Discharge instructions and prescriptions x2 reviewed with patient/spouse, verbalized understanding. RAC heplock discontinued, no active bleeding. Abdominal dressing/ervin remain unchanged/intact. All belongings, discharge instructions and prescription x2 given to patient. Patient ambulated down to lobby with Marie DAVIES, in stable condition. Discharged home at 1330.
--- NOTE | 2018-11-04 21:51 | Discharge Summary ---
Discharge Summary Discharge Summary _ DATE OF ADMISSION: 10/30/2018 DATE OF DISCHARGE: 11/02/2018 DISCHARGED BY: Dr Low REASON FOR ADMISSION: 53 years old male with no past medical history , presented with complaint of abdominal pain for 1 day. Pain was located to the right lower side of the abdomen. Patient reported nausea, vomiting, but no diarrhea. Emesis reported as nonbloody and nonbilious. He denied fever and chills. Pain reported as sharp and crampy, 9 out of 10 . Upon evaluation blood pressure was uncontrolled 162/105. CT of the abdomen and pelvis revealed acute appendicitis with inflammation, no abscess. Laboratory work-up revealed leukocytosis WBC 18.3, stable hemoglobin and hematocrit. Stable electrolytes and renal parameters. Total bilirubin 1.2. Urinalysis was essentially negative. Patient was subsequently admitted to medical surgical floor for surgical intervention. CONSULTANTS: ID specialist Dr. Mercado GI specialist Dr. Morfin sole edge inker machine Dr. Good director product management/oncologist Dr. Montiel surgery [facility] COURSE: Patient admitted to medical surgical floor. Patient was kept n.p.o. and started on IV fluid. Pain management was addressed as needed. Antiemetic provided as needed. Patient undergone on 10/30/2018 attempted laparoscopic appendectomy which ended with open appendectomy. Pathology of appendix revealed acute appendicitis. Course of recovery was uneventful. Patient initially kept n.p.o. until bowel sounds returned. Patient was initially on antibiotics as per ID specialist recommendation. Leukocytosis resolved, no fevers. Antibiotics stopped. Dressing changed as ordered by surgeon. When bowel function returned, patient started on liquid diet and was advanced as tolerated. Antiemetic provided as needed. Supportive care provided. Patient was able to tolerate diet. Pain management was addressed , and pain was controlled. Blood pressure was managed with beta-basilio and improved. County Attorney recommended follow-up as outpatient with primary care provider for further adjustment of antihypertensive medication. Advisor [employer] followed. Patient with evidence of mild anemia. Hemoglobin and hematocrit were closely monitored with goal to keep hemoglobin above 7. Hemoglobin remained stable, above 11. Patient was clinically stabilized and ready for discharge home FINAL DIAGNOSES: Acute appendicitis Status post open appendectomy Hypertension History of gout Anemia of chronic disease DISCHARGE MEDICATIONS: See Medication Reconciliation list. DISCHARGE INSTRUCTIONS: Patient was discharged home. Follow up with primary care provider in one week. I have been assigned to dictate discharge summary for this account. I was not involved in the patient's management. Dari To NP Nov 04, 2018 21:51
== END 2018-11-02 13:30 | disposition home or self-care (01) | DRG 343 ==
LOC: EMR 23:00 → 3E 10-30 00:37 → EDBEDREQ 10-30 00:43
PROC: 0DTJ0ZZ Resection of Appendix, Open Approach (ICD-10-PCS; principal; 2018-10-30 01:00)
PROC: 0DJD4ZZ Inspection of Lower Intestinal Tract, Percutaneous Endoscopic Approach (ICD-10-PCS; principal; 2018-10-30 01:00)
DX: K35.891 Other acute appendicitis without perforation, with gangrene (principal); I10 Essential (primary) hypertension; E88.09 Other disorders of plasma-protein metabolism, not elsewhere classified; E80.6 Other disorders of bilirubin metabolism; R73.9 Hyperglycemia, unspecified; D64.9 Anemia, unspecified; R11.2 Nausea with vomiting, unspecified; Z53.31 Laparoscopic surgical procedure converted to open procedure
CPT/HCPCS: 36415; 74176; 80048; 80053; 80061; 80076; 81001; 82248; 82977; 83036; 83690; 83735; 84100; 84443; 84550; 85025; 94003; 94150; 96361; 96374; 96375; 99285; C9399; J2250; J2405; J2710; J2765